=== PATIENT | male | born 1940 | race Caucasian/White ===

== ENCOUNTER → 2018-01-09 09:01 | Outpatient (CLI) | payer MEDICARE, BC, SELFPAY ==
[2018-01-09 09:26] LABS: Add Manual Diff / Slide Review NO; Basophils Percent Auto 0.8 % (0-2); Eosinophils Percent Auto 8.1 % (2-4); Hematocrit 40.7 % (41-53); Lymphocytes Percent Auto 24.6 % (25-40); Mean Corpuscular HGB Conc 34.4 % (30-36); Mean Corpuscular Hemoglobin 29.9 PG (26-34); Monocytes Percent Auto 7.1 % (3-14); Neutrophils Absolute Auto 3000 /uL (3000-5900); Neutrophils Percent Auto 59.4 % (50-75); Platelet Count 198 X10^3/uL (150-400); Red Blood Cell Count 4.68 X10^6/uL (4.5-5.9); Red Cell Distribution Width 13.4 % (11.6-14.8)
[2018-01-09 09:31] LABS: Hemoglobin A1C% w Est Avg Glu 5.7 % (4.0-6.0)
[2018-01-09 09:35] LABS: Alanine Aminotransferase 28 IU/L (21-72); Albumin 4.4 g/dL (3.5-5.0); Albumin Globulin Ratio 1.5 (1.0-2.8); Alkaline Phosphatase 56 U/L (38-126); Aspartate Aminotransferase 29 IU/L (17-59); BUN Creatinine Ratio 17.8 (6-22); Bilirubin Total 0.5 mg/dL (0.2-1.3); Blood Urea Nitrogen 16 mg/dL (9-20); Calcium 9.2 mg/dL (8.4-10.2); Carbon Dioxide 29 mmol/L (22-32); Chloride 104 mmol/L (98-107); Cholesterol 240 mg/dL (140-199); Estimated Glomerular Filt Rate > 60.0 mL/min (>60); Globulin 2.9 g/dL (1.7-4.1); Glucose 105 mg/dL (80-110); HDL Cholesterol 41 mg/dL (40-60); HEMOLYSIS < 15 (0-50); LDL Cholesterol Calculated 180 mg/dL (<100); Potassium 4.5 mmol/L (3.4-5.1); Sodium 145 mmol/L (137-145); Total Protein 7.3 g/dL (6.3-8.2); Triglycerides 93 mg/dL (35-150)
[2018-01-09 09:38] LABS: High Sensitivity CRP - Cardiac 0.5 mg/L (1.0-3.0)
[2018-01-09 09:45] LABS: Erythrocyte Sedimentation Rate 9 MM/HR (0-15)
== END ==
PROVIDERS: Visit Provider Ophthalmology
DX: I63.81 Other cerebral infarction due to occlusion or stenosis of small artery (principal); G45.3 Amaurosis fugax; R73.03 Prediabetes; E78.00 Pure hypercholesterolemia, unspecified
CPT/HCPCS: 36415; 80053; 80061; 83036; 84443; 85025; 85651; 86140

== ENCOUNTER → 2018-01-13 07:47 | Outpatient (CLI) | payer MEDICARE, BC, SELFPAY ==
--- NOTE | 2018-01-13 07:50 | DI.MRI.S_ITS ---
PROCEDURE: MR ANGIO HEAD WO CON INDICATIONS: Other cerebral infarction TECHNIQUE: Noncontrast axial 3-D [id number] MR angiogram, with 3-dimensional maximum intensity projection (MIP) reformats of the internal carotid arteries and posterior circulation then performed. COMPARISON: None. FINDINGS: Image quality: Excellent. Anterior circulation: Intracranial internal carotid arteries demonstrate normal size and intraluminal flow signal. The flow within the paired anterior cerebral arteries is normal and symmetric. The flow within the middle cerebral arteries is normal and symmetric. The anterior communicating artery is seen. No stenoses, occlusions, or aneurysms. Posterior circulation: Visualized portions of the vertebral arteries demonstrate normal caliber, and join to form a normal appearing basilar artery. The flow within the posterior cerebral arteries is normal and symmetric. No stenoses, occlusions, or aneurysms. IMPRESSION: Normal intracranial MR angiogram. Dictated by: Sukumar Perez M.D. on 01/13/2018 at 9:07 Approved by: Sukumar Perez M.D. on 01/13/2018 at 9:08
--- NOTE | 2018-01-13 07:50 | DI.MRI.S_ITS ---
PROCEDURE: MR HEAD/BRAIN WO/W CON INDICATIONS: Other cerebral infarction TECHNIQUE: Noncontrast axial T1 spin echo, axial T2 fast spin echo, sagittal and axial FLAIR, coronal T2 fast spin echo, axial gradient echo, axial diffusion and ADC through the brain. After the administration of contrast, axial and coronal 3D VIBE or T1 spin echo with fat saturation through the brain. COMPARISON: [facility], CT, HEAD WITHOUT CONTRAST, 07/07/2009, 21:52. FINDINGS: Image quality: Excellent. CSF Spaces: Basal cisterns are patent. No extra-axial fluid collections. Ventricles are normal in size and shape. Brain: No midline shift. No intracranial bleeds or masses. No abnormal intracranial enhancement. The brainstem appears normal. Diffusion-weighted images demonstrate no acute ischemic insults. No chronic ischemic insults. Normal intravascular flow voids are present. Skull and face: Calvarial marrow is normal in signal. Orbits appear normal. Sinuses: Sinuses and mastoids appear clear except for a slight degree of ethmoid air cell mucosal thickening and a small mucous retention cyst within the anterior right maxillary sinus.. IMPRESSION: Mild microvascular atherosclerotic change in the deep white matter of each hemisphere, expected for age. No acute or subacute stroke is found. Minimal ethmoid air cell mucosal thickening, note is made of a small mucous retention cyst within the anterior right maxillary sinus. No acute sinusitis is found. Dictated by: Sukumar Perez M.D. on 01/13/2018 at 9:04 Approved by: Sukumar Perez M.D. on 01/13/2018 at 9:07
== END ==
PROVIDERS: PCP Internal Medicine; Visit Provider Ophthalmology
DX: I63.89 Other cerebral infarction (principal); J34.1 Cyst and mucocele of nose and nasal sinus
CPT/HCPCS: 70544; 70553

== ENCOUNTER → 2018-02-05 13:02 | Outpatient (CLI) | payer MEDICARE, BC, SELFPAY ==
--- NOTE | 2018-02-05 | DI.ECHO.S_ITS ---
[facility]---------+ [facility] +---------+ : : [address] : : : : [id number] : : : : Phone: [phone] Echocardiogram Report + + :Name: SHARI GAUTAM Study Date: 02/05/2018 Height: 68 in : :[facility] Weight: 170 lb: : Gender: Male BSA: 1.9 m2 : :: 1940 Age: 77 yrs : :Reason For Study: TIA : : Performed By: Dottie Doan : :Referring: BRUNA THOMAS : + + Interpretation Summary The left ventricle is normal in size. The ejection fraction is estimated to be 60-65%. There is no LV thrombus. The right ventricle is borderline dilated. The right ventricular systolic function is normal. The atrial septum is aneurysmal. There is no Doppler evidence for an interatrial shunt. There is mild tricuspid regurgitation. The right ventricular systolic pressure is estimated to be at least 23 mmHg based on an estimated right atrial pressure of 3 mm Hg. Procedure: A two-dimensional transthoracic echocardiogram with color flow and Doppler was performed. The study quality was technically adequate. There is no prior echocardiogram noted for this patient. The heart rate ranged between 67-75 bpm during the study. The patient was in normal sinus rhythm during the exam. Left Ventricle: The left ventricle is normal in size. Proximal septal thickening is noted. There is no echo evidence for significant left ventricular outflow tract obstruction. There is no thrombus. The ejection fraction is estimated to be 60-65%. There are no focal wall motion abnormalities. Diastolic parameters suggest a relaxation abnormality of the left ventricle, consistent with probable normal filling pressures. Right Ventricle: The right ventricle is borderline dilated. The right ventricular systolic function is normal. Atria: The left atrium is moderately dilated. The right atrium is mildly dilated. The interatrial septum bows toward right atrium consistent with elevated left atrial pressure. The atrial septum is aneurysmal. There is no Doppler evidence for an interatrial shunt. Mitral Valve: There is mild mitral annular calcification. The mitral valve leaflets are slightly calcified. There is trace mitral regurgitation. Aortic Valve: There is mild aortic valve sclerosis. The aortic valve is trileaflet. The aortic valve opens well. There is discrete nodular thickening of the non- coronary cusp. There is no aortic valve stenosis. There is trace aortic regurgitation. Tricuspid Valve: The tricuspid valve is normal. There is mild tricuspid regurgitation. The right ventricular systolic pressure is estimated to be at least 23 mmHg based on an estimated right atrial pressure of 3 mm Hg. Pulmonic Valve: The pulmonic valve leaflets are thin and pliable; valve motion is normal. There is trace pulmonic regurgitation. Great Vessels: The aortic root is normal size. The ascending aorta is at the upper limits of normal in size. The aortic arch is normal in size. The pulmonary artery is normal size. The IVC is of normal diameter and collapses greater than 50% with a sniff. This suggests a low right atrial pressure of 3 mm Hg. Pericardium/ Pleura There is no pericardial effusion. There is no pleural effusion. MMode/2D Measurements & Calculations LVIDd: 4.6 cm LVOT diam: 2.3 cm LVIDs: 2.4 cm Ao root diam: 3.6 cm FS: 47.4 % asc Aorta Diam: 3.5 cm EPSS: 0.48 cm Ao Arch Diam (Prox Trans): 2.9 cm IVSd: 0.76 cm LVPWd: 0.92 cm LV sandoval. diameter/BSA (cm/m^2): 2.4 LV sys. diameter/BSA (cm/m^2): 1.3 LA A2 area: 22.5 cm2 RA long axis: 6.1 cm LA A4 area: 28.3 cm2 RA area: 22.3 cm2 LA length (vol): 6.3 cm RA vol: 69.0 ml LA vol: 86.4 ml RA : 36.2 ml/m2 LA vol index: 45.3 ml/m2 IVC diam: 1.4 cm RVD1 (basal): 3.6 cm TAPSE: 2.9 cm Doppler Measurements & Calculations Ao V2 max: 147.0 cm/sec LVOT Max Juan: 96.4 cm/sec Ao V2 mean: 112.8 cm/sec LV V1 max P.7 mmHg Ao max P.6 mmHg LV V1 VTI: 23.2 cm Ao mean P.4 mmHg JOSE JUAN(I,D): 3.1 cm2 Ao V2 VTI: 30.6 cm JOSE JUAN(V,D): 2.7 cm2 sev ratio: 0.76 JOSE JUAN indexed to BSA (cm^2/m^2): 1.6 MV E max juan: 60.7 cm/sec TR max juan: 220.5 cm/sec MV A max juan: 76.7 cm/sec TR max P.4 mmHg MV E/A: 0.79 Med Peak E' Juan: 6.0 cm/sec E/E' med: 10.1 Lat Peak E' Juan: 6.8 cm/sec E/E' lat: 8.9 E/e' average: 9.5 MV dec time: 0.22 sec Reading Physician:ALLISON
--- NOTE | 2018-02-05 | DI.US.S_ITS ---
PROCEDURE: US CAROTID DOPPLER BI INDICATIONS: TRANSIENT CEREBRAL TECHNIQUE: Color and pulse Doppler interrogation was performed of both carotid systems, with image documentation and velocity measurements. COMPARISON: None. FINDINGS: Stenosis calculations are based on SRU (Society of Radiologists in Ultrasound) criteria. Right side: Brachial blood pressure: 138/68 mm Hg. Common carotid artery peak systolic velocity: 93 cm/sec. Internal carotid artery peak systolic velocity: 543 cm/sec. Internal carotid artery end diastolic velocity: 219 cm/sec. External carotid artery peak systolic velocity: 175 cm/sec. ICA/CCA peak systolic ratio: 5.9. Camilo scale imaging description: Prominent calcific and soft plaque Percent internal carotid artery stenosis: 70%-to-near occlusion within the proximal right internal carotid artery. Vertebral artery: Flow direction is antegrade. Left side: Brachial blood pressure: 133/82 mm Hg. Common carotid artery peak systolic velocity: 189 cm/sec. Internal carotid artery peak systolic velocity: 212 cm/sec. Internal carotid artery end diastolic velocity: 71 cm/sec. External carotid artery peak systolic velocity: 141 cm/sec. ICA/CCA peak systolic ratio: 1.1. Camilo scale imaging description: Mild soft plaque Percent internal carotid artery stenosis: Less than 50% stenosis. Vertebral artery: Flow direction is antegrade. IMPRESSION: The degree of stenosis is significant on the right, with markedly elevated flow velocity and IC/CCA systolic ratio. The degree of stenosis is 70% or occlusion. This information was called to and discussed with the ordering health care provider at completion of the examination. Dictated by: Sukumar Perez M.D. on 02/05/2018 at 15:52 Approved by: Sukumar Perez M.D. on 02/05/2018 at 16:03
== END ==
PROVIDERS: Family Provider Internal Medicine; PCP Internal Medicine; Visit Provider Internal Medicine
DX: I65.23 Occlusion and stenosis of bilateral carotid arteries (principal)
CPT/HCPCS: 93306; 93880

== ENCOUNTER 2018-02-12 06:26 | Emergency (ER) | payer MEDICARE, BC, SELFPAY ==
[2018-02-12] VITALS (9 sets, daily range): BP systolic 96–155; BP diastolic 53–95; PULSE 72–146; RESP 14–18; TEMP 37; O2SAT 97–99; BMI 23.6
--- NOTE | 2018-02-12 06:28 | DI.RAD.S_ITS ---
PROCEDURE: XR CHEST 1V INDICATIONS: chest pain TECHNIQUE: One view of the chest was acquired. COMPARISON: [facility], , CHEST 2 VIEW, 07/09/2009, 11:19. FINDINGS: Surgical changes and devices: None. Lungs and pleura: No pleural effusions or pneumothorax. Lungs are clear. Mediastinum: Mediastinal contours appear normal. Heart size is normal. Bones and chest wall: No suspicious bony lesions. Overlying soft tissues appear unremarkable. IMPRESSION: No acute cardiopulmonary disease process. Dictated by: Leslye Mckinney MD, PhD on 02/12/2018 at 8:21 Approved by: Leslye Mckinney MD, PhD on 02/12/2018 at 8:21
--- NOTE | 2018-02-12 06:41 | ED.CHESTPAIN ---
HPI - Chest Pain <DO Tamara Paz Last Filed: 02/12/18 20:44> General Chief Complaint: Chest Pain Stated Complaint: chest pain Time Seen by Provider: 02/12/18 06:27 Source: patient Mode of arrival: ambulatory Limitations: no limitations History of Present Illness HPI narrative: 77-year-old male status post right-sided carotid endarterectomy 2 days ago. Was discharged yesterday. States that he went to bed last night feeling as expected after having surgery. Woke up this morning to go use the restroom when he felt like his heart was flip-flopping was having chest discomfort at the time. States that his symptoms have improved somewhat since the onset. States he is somewhat having shortness of breath. Has not tried anything for prior to arrival Related Data Home Medications Medication Instructions Recorded Confirmed atorvastatin 20 mg PO DAILY 02/12/18 02/12/18 clopidogrel 75 mg PO DAILY 02/12/18 02/12/18 oxycodone 5 mg PO Q4-6H PRN 02/12/18 02/12/18 Previous Rx's Medication Instructions Recorded apixaban [Eliquis] See Label Instructions .ROUTE 02/12/18 .COMPLEX #60 tab Allergies Allergy/AdvReac Type Severity Reaction Status Date / Time No Known Drug Allergies Allergy Verified 02/12/18 07:01 Review of Systems <DO Tamara Paz Last Filed: 02/12/18 20:44> Constitutional Denies fever(s) and Denies headache(s) ENT Ears, Nose, Mouth, and Throat: Denies vertigo, Denies headache(s), Reports neck pain ( right-sided) and Reports sore throat Cardiovascular Reports chest pain, Reports rapid heart rate, Reports palpitations and Denies dyspnea Respiratory Denies cough and Denies dyspnea Gastrointestinal Gastrointestinal: Denies abdominal pain, Denies nausea and Denies vomiting Musculoskeletal Denies myalgias, Denies arthralgias and Reports neck pain ( right-sided) Integumentary/Breasts Comments: surgical incision right-sided neck Neurologic Denies vertigo and Denies headache(s) Endocrine Reports palpitations Hematologic/Lymphatic Comments: not on anticoagulation Exam <DO Tamara Paz Last Filed: 02/12/18 20:44> Initial Vital Signs Initial Vital Signs: Vital Signs Temperature 98.6 F 02/12/18 06:34 Pulse Rate 146 H 02/12/18 06:34 Respiratory Rate 15 02/12/18 06:34 Blood Pressure 155/95 H 02/12/18 06:34 Pulse Oximetry 98 02/12/18 06:34 Const General: cooperative, well developed, well groomed and No acute distress Orientation: alert, awake and oriented x3 HENMT Head: normal to inspection and normocephalic Resp Effort & Inspection: normal respiratory effort Auscultation: clear to auscultation bilaterally Cardio Rate: tachycardic Rhythm: abnormal rhythm irregularly irregular Pulses: radial pulses present GI Inspection: non-distended Palpation: soft Skin Lesions: no lesions Other: surgical incision right-sided neck covered with surgical dressing. No surrounding erythema Neuro General: alert, awake and oriented x3 Extrem General: normal to inspection, capillary refill normal and No edema Psych Appearance: grossly normal and well kempt Speech and Movement: speech and movement normal Mood: congruent mood Attitude: cooperative <Devan Moody DO - Last Filed: 02/12/18 14:25> Initial Vital Signs Initial Vital Signs: Vital Signs Temperature 98.6 F 02/12/18 06:34 Pulse Rate 146 H 02/12/18 06:34 Respiratory Rate 15 02/12/18 06:34 Blood Pressure 155/95 H 02/12/18 06:34 Pulse Oximetry 98 02/12/18 06:34 <Devan Moody DO - Last Filed: 02/12/18 14:25> CHADS-VASc Congestive heart failure: no Hypertension: no Age 75 years or older: yes Diabetes mellitus: no Stroke, TIA, or TE: yes Vascular disease: yes Age 65 to 74 years: no Sex category (female): Male CHADS-VASc Score: 5 Course <Kam Loomis DO - Last Filed: 02/12/18 20:44> Orders Ordered: Discontinued Medications Apixaban (Eliquis) 10 mg PO NOW ONE Stop: 02/12/18 09:56 Last Admin: 02/12/18 10:04 Dose: 10 mg Diltiazem HCl (Cardizem) 20 mg IV NOW ONE Stop: 02/12/18 06:45 Last Admin: 02/12/18 06:50 Dose: 20 mg Sodium Chloride (Normal Saline 0.9%) 1,000 mls @ 1,000 mls/hr IV BOLUS ONE Stop: 02/12/18 07:43 Last Infusion: 02/12/18 08:33 Dose: 0 mls/hr Admin: 02/12/18 06:52 Dose: 1,000 mls/hr Diltiazem HCl 125 mg/ Dextrose 125 mls @ 5 mls/hr IV TITRATE NGOZI; Protocol Last Titration: 02/12/18 10:47 Dose: 0 mg/hr, 0 mls/hr Titration: 02/12/18 09:23 Dose: 0 mg/hr, 0 mls/hr Admin: 02/12/18 07:29 Dose: 5 mg/hr, 5 mls/hr Vital Signs - 8 hr 02/12/18 06:34 02/12/18 06:50 02/12/18 07:03 Temperature 98.6 F Pulse Rate 146 H 141 H 92 H Respiratory Rate 15 15 Blood Pressure 155/95 H 155/95 H Blood Pressure [Right Arm] 107/58 L Pulse Oximetry 98 97 02/12/18 07:29 02/12/18 08:02 02/12/18 08:45 Temperature Pulse Rate 92 H 85 98 H Respiratory Rate 18 18 Blood Pressure 118/61 Blood Pressure [Right Arm] 107/58 L 96/55 L Pulse Oximetry 97 99 02/12/18 09:15 02/12/18 10:00 02/12/18 10:29 Temperature Pulse Rate 72 82 77 Respiratory Rate 18 16 14 Blood Pressure Blood Pressure [Right Arm] 118/55 L 102/59 L 103/53 L Pulse Oximetry 97 99 99 <Devan Moody DO - Last Filed: 02/12/18 14:25> Orders Ordered: Discontinued Medications Apixaban (Eliquis) 10 mg PO NOW ONE Stop: 02/12/18 09:56 Last Admin: 02/12/18 10:04 Dose: 10 mg Diltiazem HCl (Cardizem) 20 mg IV NOW ONE Stop: 02/12/18 06:45 Last Admin: 02/12/18 06:50 Dose: 20 mg Sodium Chloride (Normal Saline 0.9%) 1,000 mls @ 1,000 mls/hr IV BOLUS ONE Stop: 02/12/18 07:43 Last Infusion: 02/12/18 08:33 Dose: 0 mls/hr Admin: 02/12/18 06:52 Dose: 1,000 mls/hr Diltiazem HCl 125 mg/ Dextrose 125 mls @ 5 mls/hr IV TITRATE NGOZI; Protocol Last Titration: 02/12/18 10:47 Dose: 0 mg/hr, 0 mls/hr Titration: 02/12/18 09:23 Dose: 0 mg/hr, 0 mls/hr Admin: 02/12/18 07:29 Dose: 5 mg/hr, 5 mls/hr Reevaluation(s) Reevaluation #1: Received sign-out from Dr. Loomis, I have performed an independent interview and exam and have no profound additions. Patient is resting comfortably on a Cardizem drip with heart rate currently 100. He denies active chest pain or shortness of breath. CT angiogram has just returned and is negative for pulmonary embolism. Call placed to vascular at [facility] to discuss options Reevaluation #2: While preparing to consent the patient for procedural sedation and cardioversion the patient spontaneously converted into a sinus rhythm where he remained for nearly an hour in the aftermath. Consultations Consultation #1: call to Vascular at [facility] whom suggests that cardioversion and procedural sedation are safe, as is anticoagulation Call to Cardio at [facility] whom is happy to recommend the above Call to PCP whom recommends [facility] Cardio Time: 08:22 Vital Signs - 8 hr 02/12/18 06:34 02/12/18 06:50 02/12/18 07:03 Temperature 98.6 F Pulse Rate 146 H 141 H 92 H Respiratory Rate 15 15 Blood Pressure 155/95 H 155/95 H Blood Pressure [Right Arm] 107/58 L Pulse Oximetry 98 97 02/12/18 07:29 02/12/18 08:02 02/12/18 08:45 Temperature Pulse Rate 92 H 85 98 H Respiratory Rate 18 18 Blood Pressure 118/61 Blood Pressure [Right Arm] 107/58 L 96/55 L Pulse Oximetry 97 99 02/12/18 09:15 02/12/18 10:00 02/12/18 10:29 Temperature Pulse Rate 72 82 77 Respiratory Rate 18 16 14 Blood Pressure Blood Pressure [Right Arm] 118/55 L 102/59 L 103/53 L Pulse Oximetry 97 99 99 MDM - Chest Pain <Kam Loomis DO - Last Filed: 02/12/18 20:44> Lab Data Result diagrams: 02/12/18 06:30 02/12/18 06:30 Lab Results 02/12/18 02/12/18 02/12/18 Range/Units 06:30 06:30 06:30 WBC 9.2 (4.5-11.0) X10^3/uL RBC 4.48 L (4.5-5.9) X10^6/uL Hgb 13.3 L (13.5-17.5) g/dL Hct 39.6 L (41-53) % MCV 88.5 (80-100) fL MCH 29.7 (26-34) PG MCHC 33.5 (30-36) % RDW 13.6 (11.6-14.8) % Plt Count 189 (150-400) X10^3/uL Neut % (Auto) 66.6 (50-75) % Lymph % (Auto) 18.7 L (25-40) % Charlotte % (Auto) 10.3 (3-14) % Eos % (Auto) 4.0 (2-4) % Baso % (Auto) 0.4 (0-2) % Neut # (Auto) 6100 H (6039-0400) /uL PT 11.9 (10.1-12.7) SECONDS INR 1.0 (0.9-1.3) APTT 29 (26.4-36.2) SECONDS Sodium 142 (137-145) mmol/L Potassium 3.8 (3.4-5.1) mmol/L Chloride 103 (98-107) mmol/L Carbon Dioxide 28 (22-32) mmol/L BUN 9 (9-20) mg/dL Creatinine 0.90 (0.66-1.25) mg/dL Estimated GFR > 60.0 (>60) mL/min BUN/Creatinine Ratio 10.0 (6-22) Glucose 120 H (80-110) mg/dL Calcium 9.2 (8.4-10.2) mg/dL Troponin I 0.013 (0.01-0.034) ng/mL B-Natriuretic Peptide (<100) 02/12/18 Range/Units 06:30 WBC (4.5-11.0) X10^3/uL RBC (4.5-5.9) X10^6/uL Hgb (13.5-17.5) g/dL Hct (41-53) % MCV (80-100) fL MCH (26-34) PG MCHC (30-36) % RDW (11.6-14.8) % Plt Count (150-400) X10^3/uL Neut % (Auto) (50-75) % Lymph % (Auto) (25-40) % Charlotte % (Auto) (3-14) % Eos % (Auto) (2-4) % Baso % (Auto) (0-2) % Neut # (Auto) (4201-9617) /uL PT (10.1-12.7) SECONDS INR (0.9-1.3) APTT (26.4-36.2) SECONDS Sodium (137-145) mmol/L Potassium (3.4-5.1) mmol/L Chloride (98-107) mmol/L Carbon Dioxide (22-32) mmol/L BUN (9-20) mg/dL Creatinine (0.66-1.25) mg/dL Estimated GFR (>60) mL/min BUN/Creatinine Ratio (6-22) Glucose (80-110) mg/dL Calcium (8.4-10.2) mg/dL Troponin I (0.01-0.034) ng/mL B-Natriuretic Peptide 568.0 H (<100) Imaging Data Chest x-ray: Attestation: I personally reviewed and interpreted this imaging study as follows: My impression: normal size heart No focal consolidation no pneumothorax ECG Data Attestation: I personally reviewed and interpreted this ECG as follows: Prior ECG tracings: not available for review Interpretation: atrial fibrillation ventricular rate of 145 Normal axis Normal QRS Normal QTC ST depressions V4 V5 MDM Narrative Medical decision making narrative: patient is stable. No history of atrial fibrillation. Started sometime overnight. Noticed it this morning when he woke up. Went to bed last night without any symptoms. He is not currently on any anticoagulation. Did recently have a right-sided carotid endarterectomy at [place]. Given his tachycardia and his respiratory issues and his recent surgery there is some concern for pulmonary embolism. CT scan of his chest was ordered. His symptoms also could very well be secondary to his rapid heart rate. Patient was given Cardizem bolus and started on a Cardizem drip. Care turned over to day provider at change of shift to follow up on CT PE protocol and further evaluation and disposition. <Devan Moody, DO - Last Filed: 02/12/18 14:25> Lab Data Lab Results 02/12/18 02/12/18 02/12/18 Range/Units 06:30 06:30 06:30 WBC 9.2 (4.5-11.0) X10^3/uL RBC 4.48 L (4.5-5.9) X10^6/uL Hgb 13.3 L (13.5-17.5) g/dL Hct 39.6 L (41-53) % MCV 88.5 (80-100) fL MCH 29.7 (26-34) PG MCHC 33.5 (30-36) % RDW 13.6 (11.6-14.8) % Plt Count 189 (150-400) X10^3/uL Neut % (Auto) 66.6 (50-75) % Lymph % (Auto) 18.7 L (25-40) % Charlotte % (Auto) 10.3 (3-14) % Eos % (Auto) 4.0 (2-4) % Baso % (Auto) 0.4 (0-2) % Neut # (Auto) 6100 H (2467-9851) /uL PT 11.9 (10.1-12.7) SECONDS INR 1.0 (0.9-1.3) APTT 29 (26.4-36.2) SECONDS Sodium 142 (137-145) mmol/L Potassium 3.8 (3.4-5.1) mmol/L Chloride 103 (98-107) mmol/L Carbon Dioxide 28 (22-32) mmol/L BUN 9 (9-20) mg/dL Creatinine 0.90 (0.66-1.25) mg/dL Estimated GFR > 60.0 (>60) mL/min BUN/Creatinine Ratio 10.0 (6-22) Glucose 120 H (80-110) mg/dL Calcium 9.2 (8.4-10.2) mg/dL Troponin I 0.013 (0.01-0.034) ng/mL B-Natriuretic Peptide (<100) 02/12/18 Range/Units 06:30 WBC (4.5-11.0) X10^3/uL RBC (4.5-5.9) X10^6/uL Hgb (13.5-17.5) g/dL Hct (41-53) % MCV (80-100) fL MCH (26-34) PG MCHC (30-36) % RDW (11.6-14.8) % Plt Count (150-400) X10^3/uL Neut % (Auto) (50-75) % Lymph % (Auto) (25-40) % Charlotte % (Auto) (3-14) % Eos % (Auto) (2-4) % Baso % (Auto) (0-2) % Neut # (Auto) (0260-4773) /uL PT (10.1-12.7) SECONDS INR (0.9-1.3) APTT (26.4-36.2) SECONDS Sodium (137-145) mmol/L Potassium (3.4-5.1) mmol/L Chloride (98-107) mmol/L Carbon Dioxide (22-32) mmol/L BUN (9-20) mg/dL Creatinine (0.66-1.25) mg/dL Estimated GFR (>60) mL/min BUN/Creatinine Ratio (6-22) Glucose (80-110) mg/dL Calcium (8.4-10.2) mg/dL Troponin I (0.01-0.034) ng/mL B-Natriuretic Peptide 568.0 H (<100) Discharge Plan Departure Patient Disposition: Home Clinical Impression: Atrial fib/flutter, transient Discharge Date/Time: 02/12/18 10:48 Interventions: ED Discharge Assessment Last Done: 02/12/18 10:48 Instructions: DI for Atrial Fibrillation Activity Restrictions/Additional Instructions: *You have been diagnosed with [ new onset atrial fibrillation ] *What to do: *Take medications as directed. Your prescription has been electronically transmitted to [facility] in [place] at your request. Please take your next dose tonight. *Follow up with your primary care provider in 2-3 days, call for an appointment. Let them know you were seen in the Emergency Department and that we ask that you be seen in follow up. He will need to see Cardiology in follow-up for your newly discovered atrial fibrillation *Return to ER if you should have any new, worsening or concerning symptoms, such as [return of palpitations, rapid heart rate, or other bothersome symptoms ] Prescriptions: New apixaban [Eliquis] 5 mg tablet See Label Instructions .ROUTE .COMPLEX Qty: 60 RF: 0 No Action atorvastatin 20 mg tablet 20 mg PO DAILY RF: 0 clopidogrel 75 mg tablet 75 mg PO DAILY RF: 0 oxycodone 5 mg tablet 5 mg PO Q4-6H PRN (Reason: pain) RF: 0 Referrals: Usman White MD [Physician] - Kiley Jameson MD [Primary Care Provider] -
[2018-02-12 06:44] LABS: Add Manual Diff / Slide Review NO; Basophils Percent Auto 0.4 % (0-2); Hematocrit 39.6 % (41-53); Hemoglobin 13.3 g/dL (13.5-17.5); Lymphocytes Percent Auto 18.7 % (25-40); Mean Corpuscular HGB Conc 33.5 % (30-36); Mean Corpuscular Hemoglobin 29.7 PG (26-34); Mean Corpuscular Volume 88.5 fL (80-100); Monocytes Percent Auto 10.3 % (3-14); Neutrophils Absolute Auto 6100 /uL (3000-5900); Neutrophils Percent Auto 66.6 % (50-75); Platelet Count 189 X10^3/uL (150-400); Red Blood Cell Count 4.48 X10^6/uL (4.5-5.9); Red Cell Distribution Width 13.6 % (11.6-14.8); White Blood Cell Count 9.2 X10^3/uL (4.5-11.0)
--- NOTE | 2018-02-12 06:44 | ED_ITS ---
HPI - Chest Pain <DO Tamara Paz Last Filed: 02/12/18 20:44> General Chief Complaint: Chest Pain Stated Complaint: chest pain Time Seen by Provider: 02/12/18 06:27 Source: patient Mode of arrival: ambulatory Limitations: no limitations History of Present Illness HPI narrative: 77-year-old male status post right-sided carotid endarterectomy 2 days ago. Was discharged yesterday. States that he went to bed last night feeling as expected after having surgery. Woke up this morning to go use the restroom when he felt like his heart was flip-flopping was having chest discomfort at the time. States that his symptoms have improved somewhat since the onset. States he is somewhat having shortness of breath. Has not tried anything for prior to arrival Related Data Home Medications Medication Instructions Recorded Confirmed atorvastatin 20 mg PO DAILY 02/12/18 02/12/18 clopidogrel 75 mg PO DAILY 02/12/18 02/12/18 oxycodone 5 mg PO Q4-6H PRN 02/12/18 02/12/18 Previous Rx's Medication Instructions Recorded apixaban [Eliquis] See Label Instructions .ROUTE 02/12/18 .COMPLEX #60 tab Allergies Allergy/AdvReac Type Severity Reaction Status Date / Time No Known Drug Allergies Allergy Verified 02/12/18 07:01 Review of Systems <DO Tamara Paz Last Filed: 02/12/18 20:44> Constitutional Denies fever(s) and Denies headache(s) ENT Ears, Nose, Mouth, and Throat: Denies vertigo, Denies headache(s), Reports neck pain ( right-sided) and Reports sore throat Cardiovascular Reports chest pain, Reports rapid heart rate, Reports palpitations and Denies dyspnea Respiratory Denies cough and Denies dyspnea Gastrointestinal Gastrointestinal: Denies abdominal pain, Denies nausea and Denies vomiting Musculoskeletal Denies myalgias, Denies arthralgias and Reports neck pain ( right-sided) Integumentary/Breasts Comments: surgical incision right-sided neck Neurologic Denies vertigo and Denies headache(s) Endocrine Reports palpitations Hematologic/Lymphatic Comments: not on anticoagulation Exam <DO Tamara Paz Last Filed: 02/12/18 20:44> Initial Vital Signs Initial Vital Signs: Vital Signs Temperature 98.6 F 02/12/18 06:34 Pulse Rate 146 H 02/12/18 06:34 Respiratory Rate 15 02/12/18 06:34 Blood Pressure 155/95 H 02/12/18 06:34 Pulse Oximetry 98 02/12/18 06:34 Const General: cooperative, well developed, well groomed and No acute distress Orientation: alert, awake and oriented x3 HENMT Head: normal to inspection and normocephalic Resp Effort & Inspection: normal respiratory effort Auscultation: clear to auscultation bilaterally Cardio Rate: tachycardic Rhythm: abnormal rhythm irregularly irregular Pulses: radial pulses present GI Inspection: non-distended Palpation: soft Skin Lesions: no lesions Other: surgical incision right-sided neck covered with surgical dressing. No surrounding erythema Neuro General: alert, awake and oriented x3 Extrem General: normal to inspection, capillary refill normal and No edema Psych Appearance: grossly normal and well kempt Speech and Movement: speech and movement normal Mood: congruent mood Attitude: cooperative <Devan Moody DO - Last Filed: 02/12/18 14:25> Initial Vital Signs Initial Vital Signs: Vital Signs Temperature 98.6 F 02/12/18 06:34 Pulse Rate 146 H 02/12/18 06:34 Respiratory Rate 15 02/12/18 06:34 Blood Pressure 155/95 H 02/12/18 06:34 Pulse Oximetry 98 02/12/18 06:34 <Devan Moody DO - Last Filed: 02/12/18 14:25> CHADS-VASc Congestive heart failure: no Hypertension: no Age 75 years or older: yes Diabetes mellitus: no Stroke, TIA, or TE: yes Vascular disease: yes Age 65 to 74 years: no Sex category (female): Male CHADS-VASc Score: 5 Course <Kam Loomis DO - Last Filed: 02/12/18 20:44> Orders Ordered: Discontinued Medications Apixaban (Eliquis) 10 mg PO NOW ONE Stop: 02/12/18 09:56 Last Admin: 02/12/18 10:04 Dose: 10 mg Diltiazem HCl (Cardizem) 20 mg IV NOW ONE Stop: 02/12/18 06:45 Last Admin: 02/12/18 06:50 Dose: 20 mg Sodium Chloride (Normal Saline 0.9%) 1,000 mls @ 1,000 mls/hr IV BOLUS ONE Stop: 02/12/18 07:43 Last Infusion: 02/12/18 08:33 Dose: 0 mls/hr Admin: 02/12/18 06:52 Dose: 1,000 mls/hr Diltiazem HCl 125 mg/ Dextrose 125 mls @ 5 mls/hr IV TITRATE NGOZI; Protocol Last Titration: 02/12/18 10:47 Dose: 0 mg/hr, 0 mls/hr Titration: 02/12/18 09:23 Dose: 0 mg/hr, 0 mls/hr Admin: 02/12/18 07:29 Dose: 5 mg/hr, 5 mls/hr Vital Signs - 8 hr 02/12/18 06:34 02/12/18 06:50 02/12/18 07:03 Temperature 98.6 F Pulse Rate 146 H 141 H 92 H Respiratory Rate 15 15 Blood Pressure 155/95 H 155/95 H Blood Pressure [Right Arm] 107/58 L Pulse Oximetry 98 97 02/12/18 07:29 02/12/18 08:02 02/12/18 08:45 Temperature Pulse Rate 92 H 85 98 H Respiratory Rate 18 18 Blood Pressure 118/61 Blood Pressure [Right Arm] 107/58 L 96/55 L Pulse Oximetry 97 99 02/12/18 09:15 02/12/18 10:00 02/12/18 10:29 Temperature Pulse Rate 72 82 77 Respiratory Rate 18 16 14 Blood Pressure Blood Pressure [Right Arm] 118/55 L 102/59 L 103/53 L Pulse Oximetry 97 99 99 <Devan Moody DO - Last Filed: 02/12/18 14:25> Orders Ordered: Discontinued Medications Apixaban (Eliquis) 10 mg PO NOW ONE Stop: 02/12/18 09:56 Last Admin: 02/12/18 10:04 Dose: 10 mg Diltiazem HCl (Cardizem) 20 mg IV NOW ONE Stop: 02/12/18 06:45 Last Admin: 02/12/18 06:50 Dose: 20 mg Sodium Chloride (Normal Saline 0.9%) 1,000 mls @ 1,000 mls/hr IV BOLUS ONE Stop: 02/12/18 07:43 Last Infusion: 02/12/18 08:33 Dose: 0 mls/hr Admin: 02/12/18 06:52 Dose: 1,000 mls/hr Diltiazem HCl 125 mg/ Dextrose 125 mls @ 5 mls/hr IV TITRATE NGOZI; Protocol Last Titration: 02/12/18 10:47 Dose: 0 mg/hr, 0 mls/hr Titration: 02/12/18 09:23 Dose: 0 mg/hr, 0 mls/hr Admin: 02/12/18 07:29 Dose: 5 mg/hr, 5 mls/hr Reevaluation(s) Reevaluation #1: Received sign-out from Dr. Loomis, I have performed an independent interview and exam and have no profound additions. Patient is resting comfortably on a Cardizem drip with heart rate currently 100. He denies active chest pain or shortness of breath. CT angiogram has just returned and is negative for pulmonary embolism. Call placed to vascular at [facility] to discuss options Reevaluation #2: While preparing to consent the patient for procedural sedation and cardioversion the patient spontaneously converted into a sinus rhythm where he remained for nearly an hour in the aftermath. Consultations Consultation #1: call to Vascular at [facility] whom suggests that cardioversion and procedural sedation are safe, as is anticoagulation Call to Cardio at [facility] whom is happy to recommend the above Call to PCP whom recommends [facility] Cardio Time: 08:22 Vital Signs - 8 hr 02/12/18 06:34 02/12/18 06:50 02/12/18 07:03 Temperature 98.6 F Pulse Rate 146 H 141 H 92 H Respiratory Rate 15 15 Blood Pressure 155/95 H 155/95 H Blood Pressure [Right Arm] 107/58 L Pulse Oximetry 98 97 02/12/18 07:29 02/12/18 08:02 02/12/18 08:45 Temperature Pulse Rate 92 H 85 98 H Respiratory Rate 18 18 Blood Pressure 118/61 Blood Pressure [Right Arm] 107/58 L 96/55 L Pulse Oximetry 97 99 02/12/18 09:15 02/12/18 10:00 02/12/18 10:29 Temperature Pulse Rate 72 82 77 Respiratory Rate 18 16 14 Blood Pressure Blood Pressure [Right Arm] 118/55 L 102/59 L 103/53 L Pulse Oximetry 97 99 99 MDM - Chest Pain <Kam Loomis DO - Last Filed: 02/12/18 20:44> Lab Data Result diagrams: 02/12/18 06:30 02/12/18 06:30 Lab Results 02/12/18 02/12/18 02/12/18 Range/Units 06:30 06:30 06:30 WBC 9.2 (4.5-11.0) X10^3/uL RBC 4.48 L (4.5-5.9) X10^6/uL Hgb 13.3 L (13.5-17.5) g/dL Hct 39.6 L (41-53) % MCV 88.5 (80-100) fL MCH 29.7 (26-34) PG MCHC 33.5 (30-36) % RDW 13.6 (11.6-14.8) % Plt Count 189 (150-400) X10^3/uL Neut % (Auto) 66.6 (50-75) % Lymph % (Auto) 18.7 L (25-40) % Louisa % (Auto) 10.3 (3-14) % Eos % (Auto) 4.0 (2-4) % Baso % (Auto) 0.4 (0-2) % Neut # (Auto) 6100 H (4309-8245) /uL PT 11.9 (10.1-12.7) SECONDS INR 1.0 (0.9-1.3) APTT 29 (26.4-36.2) SECONDS Sodium 142 (137-145) mmol/L Potassium 3.8 (3.4-5.1) mmol/L Chloride 103 (98-107) mmol/L Carbon Dioxide 28 (22-32) mmol/L BUN 9 (9-20) mg/dL Creatinine 0.90 (0.66-1.25) mg/dL Estimated GFR > 60.0 (>60) mL/min BUN/Creatinine Ratio 10.0 (6-22) Glucose 120 H (80-110) mg/dL Calcium 9.2 (8.4-10.2) mg/dL Troponin I 0.013 (0.01-0.034) ng/mL B-Natriuretic Peptide (<100) 02/12/18 Range/Units 06:30 WBC (4.5-11.0) X10^3/uL RBC (4.5-5.9) X10^6/uL Hgb (13.5-17.5) g/dL Hct (41-53) % MCV (80-100) fL MCH (26-34) PG MCHC (30-36) % RDW (11.6-14.8) % Plt Count (150-400) X10^3/uL Neut % (Auto) (50-75) % Lymph % (Auto) (25-40) % Louisa % (Auto) (3-14) % Eos % (Auto) (2-4) % Baso % (Auto) (0-2) % Neut # (Auto) (0898-2335) /uL PT (10.1-12.7) SECONDS INR (0.9-1.3) APTT (26.4-36.2) SECONDS Sodium (137-145) mmol/L Potassium (3.4-5.1) mmol/L Chloride (98-107) mmol/L Carbon Dioxide (22-32) mmol/L BUN (9-20) mg/dL Creatinine (0.66-1.25) mg/dL Estimated GFR (>60) mL/min BUN/Creatinine Ratio (6-22) Glucose (80-110) mg/dL Calcium (8.4-10.2) mg/dL Troponin I (0.01-0.034) ng/mL B-Natriuretic Peptide 568.0 H (<100) Imaging Data Chest x-ray: Attestation: I personally reviewed and interpreted this imaging study as follows: My impression: normal size heart No focal consolidation no pneumothorax ECG Data Attestation: I personally reviewed and interpreted this ECG as follows: Prior ECG tracings: not available for review Interpretation: atrial fibrillation ventricular rate of 145 Normal axis Normal QRS Normal QTC ST depressions V4 V5 MDM Narrative Medical decision making narrative: patient is stable. No history of atrial fibrillation. Started sometime overnight. Noticed it this morning when he woke up. Went to bed last night without any symptoms. He is not currently on any anticoagulation. Did recently have a right-sided carotid endarterectomy at [place]. Given his tachycardia and his respiratory issues and his recent surgery there is some concern for pulmonary embolism. CT scan of his chest was ordered. His symptoms also could very well be secondary to his rapid heart rate. Patient was given Cardizem bolus and started on a Cardizem drip. Care turned over to day provider at change of shift to follow up on CT PE protocol and further evaluation and disposition. <Devan Moody, DO - Last Filed: 02/12/18 14:25> Lab Data Lab Results 02/12/18 02/12/18 02/12/18 Range/Units 06:30 06:30 06:30 WBC 9.2 (4.5-11.0) X10^3/uL RBC 4.48 L (4.5-5.9) X10^6/uL Hgb 13.3 L (13.5-17.5) g/dL Hct 39.6 L (41-53) % MCV 88.5 (80-100) fL MCH 29.7 (26-34) PG MCHC 33.5 (30-36) % RDW 13.6 (11.6-14.8) % Plt Count 189 (150-400) X10^3/uL Neut % (Auto) 66.6 (50-75) % Lymph % (Auto) 18.7 L (25-40) % Louisa % (Auto) 10.3 (3-14) % Eos % (Auto) 4.0 (2-4) % Baso % (Auto) 0.4 (0-2) % Neut # (Auto) 6100 H (7397-6036) /uL PT 11.9 (10.1-12.7) SECONDS INR 1.0 (0.9-1.3) APTT 29 (26.4-36.2) SECONDS Sodium 142 (137-145) mmol/L Potassium 3.8 (3.4-5.1) mmol/L Chloride 103 (98-107) mmol/L Carbon Dioxide 28 (22-32) mmol/L BUN 9 (9-20) mg/dL Creatinine 0.90 (0.66-1.25) mg/dL Estimated GFR > 60.0 (>60) mL/min BUN/Creatinine Ratio 10.0 (6-22) Glucose 120 H (80-110) mg/dL Calcium 9.2 (8.4-10.2) mg/dL Troponin I 0.013 (0.01-0.034) ng/mL B-Natriuretic Peptide (<100) 02/12/18 Range/Units 06:30 WBC (4.5-11.0) X10^3/uL RBC (4.5-5.9) X10^6/uL Hgb (13.5-17.5) g/dL Hct (41-53) % MCV (80-100) fL MCH (26-34) PG MCHC (30-36) % RDW (11.6-14.8) % Plt Count (150-400) X10^3/uL Neut % (Auto) (50-75) % Lymph % (Auto) (25-40) % Louisa % (Auto) (3-14) % Eos % (Auto) (2-4) % Baso % (Auto) (0-2) % Neut # (Auto) (5645-3109) /uL PT (10.1-12.7) SECONDS INR (0.9-1.3) APTT (26.4-36.2) SECONDS Sodium (137-145) mmol/L Potassium (3.4-5.1) mmol/L Chloride (98-107) mmol/L Carbon Dioxide (22-32) mmol/L BUN (9-20) mg/dL Creatinine (0.66-1.25) mg/dL Estimated GFR (>60) mL/min BUN/Creatinine Ratio (6-22) Glucose (80-110) mg/dL Calcium (8.4-10.2) mg/dL Troponin I (0.01-0.034) ng/mL B-Natriuretic Peptide 568.0 H (<100) Discharge Plan Departure Patient Disposition: Home Clinical Impression: Atrial fib/flutter, transient Discharge Date/Time: 02/12/18 10:48 Interventions: ED Discharge Assessment Last Done: 02/12/18 10:48 Instructions: DI for Atrial Fibrillation Activity Restrictions/Additional Instructions: *You have been diagnosed with [ new onset atrial fibrillation ] *What to do: *Take medications as directed. Your prescription has been electronically transmitted to [facility] in [place] at your request. Please take your next dose tonight. *Follow up with your primary care provider in 2-3 days, call for an appointment. Let them know you were seen in the Emergency Department and that we ask that you be seen in follow up. He will need to see Cardiology in follow- up for your newly discovered atrial fibrillation *Return to ER if you should have any new, worsening or concerning symptoms , such as [return of palpitations, rapid heart rate, or other bothersome symptoms ] Prescriptions: New apixaban [Eliquis] 5 mg tablet See Label Instructions .ROUTE .COMPLEX Qty: 60 RF: 0 No Action atorvastatin 20 mg tablet 20 mg PO DAILY RF: 0 clopidogrel 75 mg tablet 75 mg PO DAILY RF: 0 oxycodone 5 mg tablet 5 mg PO Q4-6H PRN (Reason: pain) RF: 0 Referrals: Usman White MD [Physician] - Kiley Jameson MD [Primary Care Provider] -
[2018-02-12 06:49] LABS: Prothrombin Time 11.9 SECONDS (10.1-12.7)
[2018-02-12] MEDS: dilTIAZem 5 MG/ML SDV 20 MG IV (06:50)
[2018-02-12 06:52] LABS: PTT Partial Thromboplastin Tim 29 SECONDS (26.4-36.2)
[2018-02-12] MEDS: SODIUM CHLORIDE 0.9% 1,000 ML 1000 ML IV (06:52)
[2018-02-12 06:53] LABS: Blood Urea Nitrogen 9 mg/dL (9-20); Calcium 9.2 mg/dL (8.4-10.2); Carbon Dioxide 28 mmol/L (22-32); Chloride 103 mmol/L (98-107); Estimated Glomerular Filt Rate > 60.0 mL/min (>60); Glucose 120 mg/dL (80-110); HEMOLYSIS < 15 (0-50); Potassium 3.8 mmol/L (3.4-5.1); Sodium 142 mmol/L (137-145)
[2018-02-12 07:05] LABS: Troponin I 0.013 ng/mL (0.01-0.034)
--- NOTE | 2018-02-12 07:05 | PC.NURSE ---
Vital signs closely monitored during administration of Diltiazem. Pt states his pain has decreased but still feels some pressure. HR is still irregular.
--- NOTE | 2018-02-12 07:24 | DI.CT.S_ITS ---
PROCEDURE: CT ANGIO CHEST PE PROTOCOL INDICATIONS: Chest pain, shortness of breath, tachycardia TECHNIQUE: After the administration of intravenous contrast, 2 mm thick sections acquired from the pulmonary apices to the posterior costophrenic angles. 3-dimensional maximum intensity projection (MIP) coronal and sagittal reformats were then acquired through the thorax. For radiation dose reduction, the following was used: automated exposure control, adjustment of mA and/or kV according to patient size. COMPARISON: None. FINDINGS: Image quality: Excellent. Pulmonary arteries: Pulmonary arteries are normal in size, and demonstrate no intraluminal filling defects to suggest central pulmonary embolism. Lungs and pleura: Atelectasis noted in the dependent portion the lung bases. No pleural effusions or pneumothorax. Central and peripheral airways are patent. Mediastinum: Heart size is normal, without pericardial effusion. Atherosclerotic calcifications noted in the coronary vasculature. No mediastinal or hilar adenopathy. Thoracic aorta is normal in caliber and enhancement. Esophagus is normal in caliber, without hiatal hernia. There is a 1.2 x 0.8 cm soft tissue density mass in the posterior right margin of the upper thoracic trachea concerning for neoplastic process. Bones and chest wall: No suspicious bony lesions. Ribs and thoracic spine appear intact throughout. Spine degenerative disc disease and facet arthropathy. Thyroid gland is within normal limits. No axillary or supraclavicular adenopathy. Subcutaneous air noted in the anterior right lower neck soft tissues (series 4, images 8-19) possibly related to reported recent endarterectomy. Abdomen: Visualized upper abdominal solid organs appear normal in the early arterial phase of enhancement. IMPRESSION: 1. No pulmonary embolus. 2. Atherosclerosis including the coronary vasculature. 3. 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 Recommend pulmonology consultation. 4. Soft tissue gas involving the lower right neck possibly related to prior endarterectomy. Dictated by: Leslye Mckinney MD, PhD on 02/12/2018 at 7:55 Approved by: Leslye Mckinney MD, PhD on 02/12/2018 at 8:08
[2018-02-12] MEDS: dilTIAZem 125 MG in DEXTROSE 5 % IN WATER 100 ML IV (07:29)
[2018-02-12] MEDS: APIXABAN 5 MG TABLET 10 MG PO (10:04)
== END 2018-02-12 10:48 | disposition home or self-care (01) ==
PROVIDERS: Emergency Medicine; Emergency Provider Emergency Medicine; Family Provider Internal Medicine; PCP Internal Medicine
DX: I48.91 Unspecified atrial fibrillation (principal); I48.92 Unspecified atrial flutter
CPT/HCPCS: 36591; 71045; 71275; 80048; 83880; 84484; 85025; 85610; 85730; 93005; 93010; 96361; 96365; 96366; 96376; 99285; Q9967

== ENCOUNTER → 2018-06-03 07:07 | Outpatient (CLI) | payer MEDICARE, BC, SELFPAY ==
[2018-06-03 08:31] LABS: Alanine Aminotransferase 32 IU/L (21-72); Aspartate Aminotransferase 30 IU/L (17-59); BUN Creatinine Ratio 13.3 (6-22); Blood Urea Nitrogen 12 mg/dL (9-20); Calcium 9.6 mg/dL (8.4-10.2); Carbon Dioxide 29 mmol/L (22-32); Chloride 100 mmol/L (98-107); Cholesterol 218 mg/dL (140-199); Estimated Glomerular Filt Rate > 60.0 mL/min (>60); Glucose 96 mg/dL (80-110); HDL Cholesterol 47 mg/dL (40-60); HEMOLYSIS < 15 (0-50); LDL Cholesterol Calculated 156 mg/dL (<100); Potassium 4.2 mmol/L (3.4-5.1); Sodium 140 mmol/L (137-145); Triglycerides 74 mg/dL (35-150)
[2018-06-03 08:36] LABS: Hemoglobin A1C% w Est Avg Glu 5.3 % (4.0-6.0)
[2018-06-03 09:01] LABS: Prostate Specific Antigen 0.373 ng/mL (0.10-4.00)
== END ==
PROVIDERS: PCP Internal Medicine; Visit Provider Internal Medicine
DX: I48.91 Unspecified atrial fibrillation (principal); E78.5 Hyperlipidemia, unspecified; R73.01 Impaired fasting glucose; Z12.5 Encounter for screening for malignant neoplasm of prostate; Z13.1 Encounter for screening for diabetes mellitus
CPT/HCPCS: 36415; 80048; 80061; 83036; 84153; 84450; 84460; G0103

== ENCOUNTER → 2018-06-04 13:14 | Outpatient (CLI) | payer MEDICARE, BC, SELFPAY ==
--- NOTE | 2018-06-04 | DI.CT.S_ITS ---
PROCEDURE: CT SOFT TISSUE NECK W CON INDICATIONS: OTHER SPECIFIED DISEASE OF UPPER RESPIRATORY TECHNIQUE: After the administration of intravenous contrast, 3.0 mm axial sections acquired from the sella to the aortic arch. Additional oblique axial 3.0 mm sections acquired through the pharynx. 3 mm thick coronal and sagittal reformats were generated. For radiation dose reduction, the following was used: automated exposure control. COMPARISON: [facility], CT, CT ANGIO CHEST PE PROTOCOL, 02/12/2018, 7:25. [facility], CT, CT CHEST W CON, 06/04/2018, 13:27. FINDINGS: Image quality: Excellent. Lymph nodes: No enlarged lymph nodes seen throughout the neck. Vessels: Visualized vasculature appears patent. Atherosclerotic irregularity can be seen involving the bifurcation regions. Postoperative clips are seen adjacent to the right carotid bifurcation. Please correlate with prior right carotid endarterectomy. 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 The oropharynx, nasopharynx, and pharynx demonstrate no mucosal lesions. The vocal cords, false vocal cords, pyriform sinuses, epiglottis, vallecula, and tongue base all appear normal. Extramucosal spaces appear unremarkable. Glands: The parotid and submandibular glands appear normal. Thyroid gland demonstrates no significant CT abnormality. Miscellaneous: Visualized brain and orbits appear normal. Mild dependent groundglass opacity can be seen within the visualized lung apices. Superficial soft tissues appear normal. Bones: No suspicious bony lesions. Visualized sinuses and mastoids appear unremarkable. Age-appropriate bony degenerative changes are seen. 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 This may be related to resolved mucous within the trachea. Mild dependent groundglass opacity can be seen within the visualized lung apices. This may be related to mild pulmonary edema. Please correlate with known patient history. Incidental note is made of: Apparent prior right carotid endarterectomy. Dictated by: Lui Alonso M.D. on 06/04/2018 at 13:33 Approved by: Lui Alonso M.D. on 06/04/2018 at 13:37
--- NOTE | 2018-06-04 | DI.CT.S_ITS ---
PROCEDURE: CT CHEST W CON INDICATIONS: Upper tracheal filling defect TECHNIQUE: After the administration of intravenous contrast, 5 mm thick sections acquired from the pulmonary apices to the posterior costophrenic angles. 7 mm thick coronal and sagittal MIP reformats were acquired. For radiation dose reduction, the following was used: automated exposure control, adjustment of mA and/or kV according to patient size. COMPARISON: [facility], CT, CT ANGIO CHEST PE PROTOCOL, 02/12/2018, 7:25. FINDINGS: Image quality: Excellent. Lungs and pleura: No acute air space opacities. The dependent atelectasis in posterior aspect of bilateral lung valdez are seen. No discrete pulmonary nodule or mass. No pleural effusions or pneumothorax. Central and peripheral airways are patent and normal in caliber. Previously described upper tracheal filling defect is no longer seen, likely represent resolved inflammatory material. Mediastinum: Heart size is normal. No pericardial effusion. No mediastinal or hilar adenopathy by size criteria. Thoracic aorta and central pulmonary arteries are normal in size. Coronary artery calcifications are again seen. Esophagus is normal in caliber. No hiatal hernia. Bones and chest wall: No suspicious bony lesions. No vertebral body compression fractures. No axillary or supraclavicular adenopathy by size criteria. Thyroid gland is unremarkable. Abdomen: Visualized upper abdominal solid organs appear normal. Upper abdominal bowel loops are normal in caliber. 3 well-circumscribed subcentimeter hypodensities are again seen in left hepatic lobe, likely represent hepatic cysts. IMPRESSION: #1. Previously described soft tissue density structure in upper trachea is no longer present and likely represent resolved inflammatory material. Airway is patent on the current study. #2. Bilateral lungs are essentially clear. #3. No mediastinal adenopathy. #4. Tiny hypodensities in left hepatic lobe likely represent hepatic cysts. Dictated by: Delmer Mckeon M.D. on 06/04/2018 at 14:51 Approved by: Delmer Mckeon M.D. on 06/04/2018 at 14:56
== END ==
PROVIDERS: PCP Internal Medicine; Visit Provider Internal Medicine Critical Care Medicine
DX: J39.8 Other specified diseases of upper respiratory tract (principal); I25.10 Atherosclerotic heart disease of native coronary artery without angina pectoris
CPT/HCPCS: 70491; 71260; Q9967

== ENCOUNTER → 2018-07-06 10:43 | Outpatient (REF) | payer MEDICARE, BC, SELFPAY ==
[2018-07-06 11:19] LABS: Cholesterol 207 mg/dL (140-199); Glucose Promotional 104 mg/dL (80-110); HDL Cholesterol 43 mg/dL (40-60); LDL Cholesterol Calculated 144 mg/dL (<100); Triglycerides 98 mg/dL (35-150)
== END ==
LOC: LAB 10:43
PROVIDERS: PCP Internal Medicine
DX: Z13.1 Encounter for screening for diabetes mellitus (principal); Z13.220 Encounter for screening for lipoid disorders
CPT/HCPCS: 80061; 82947

== ENCOUNTER → 2018-12-28 07:41 | Outpatient (CLI) | payer SELFPAY ==
[2018-12-28 09:11] LABS: Cholesterol 217 mg/dL (140-199); Glucose Promotional 98 mg/dL (80-110); HDL Cholesterol 52 mg/dL (40-60); LDL Cholesterol Calculated 154 mg/dL (<100); Triglycerides 55 mg/dL (35-150)
== END ==
PROVIDERS: PCP Internal Medicine
DX: Z13.9 Encounter for screening, unspecified (principal)
CPT/HCPCS: 80061; 82947

== ENCOUNTER 2019-05-03 12:57 | Emergency (ER) | payer MEDICARE, BC, SELFPAY ==
[2019-05-03 13:02] VITALS: BP 187/75; PULSE 65; RESP 16; TEMP 36.9; O2SAT 99; BMI 24.7
--- NOTE | 2019-05-03 13:22 | ED_ITS ---
HPI - Dizziness General Chief Complaint: Dizziness Stated Complaint: DIZZY NAUSEA Time Seen by Provider: 05/03/19 13:21 Source: patient Mode of arrival: Ambulatory Limitations: no limitations History of Present Illness HPI Narrative: This is a 78-year-old male who comes to the emergency department and states that he has had dizziness. He states that it is worse when he goes from a lying to standing position. Particularly in the morning. This morning at 2:30 a.m. it was quite severe and he felt like he was going to fall down or pass out. He states been going on for the last 3 days. Diminishes the longer he is upright and this the day goes by he does not have issues. He states that last night he slept in the chair and then got up and it was less intense. I states last night he was also quite sweaty with this episode. He denies headache, he denies vision changes, he denies any numbness, tingling or weakness. He states the room does not feel like it is spinning it is more like he is dizzy or might pass out. He has not had an actual syncopal episode. He states he does not get any tunnel vision. He has been nauseated with the episodes but denies any vomiting. He denies any chest pain or pressure, no shortness of breath or abdominal pain. Has a history of episode of atrial fibrillation, a TIA with vision change although he states that nothing specific was found. He had and endarterectomy in February of 2018. He states he does not take any medications or blood thinners, no aspirin or Plavix no statins or other medications regularly. He has an allergic reaction to tree nuts, no tobacco, occasional alcohol and no illicit. Primary care is Dr. Jameson he follows with Dr. Saunders for his carotid. Related Data Home Medications Medication Instructions Recorded Confirmed Vitamin C 1 tab PO DAILY 05/03/19 05/03/19 Vitamin D3 1 cap PO DAILY 05/03/19 05/03/19 magnesium 1 tab PO DAILY 05/03/19 05/03/19 multivitamin 1 tab PO DAILY 05/03/19 05/03/19 resveratrol 1 cap PO DAILY 05/03/19 05/03/19 vitamin K 1 tab PO DAILY 05/03/19 05/03/19 Allergies Allergy/AdvReac Type Severity Reaction Status Date / Time No Known Drug Allergies Allergy Verified 02/12/18 07:01 Review of Systems Review of Systems ROS Unobtainable: All systems reviewed & are unremarkable except as noted in HPI and below Patient History Medical History Atrial fibrillation (Acute) Hx-TIA (transient ischemic attack) (Acute) Surgical History H/O carotid endarterectomy (Acute) Social History marital status: lives independently: Yes Smoking Status: Never smoker Smoking Status: Never smoker alcohol intake frequency: a few times a week Alcohol type: beer and wine Substance Use Type: does not use Exam Narrative Exam Narrative: GEN: thin, elderly appearing male, alert and oriented x 3, patient appears to be in mild distress. Patient is laying mostly flat on gurney. HEENT: Atraumatic, pupils are equal round reactive to light, extraocular movements are intact, no nystagmus, nares are clear, TMs are clear with no fluid, there is no conjunctival pallor. Throat is clear without any exudates, erythema, tonsillar enlargement or uvular deviation, no facial droop, HEART: Regular rate and rhythm without murmur, clicks, rubs. No carotid bruits, pulses are equal in upper and lower extremities LUNGS:Lungs clear to auscultation, no wheezes, rales, crackles, chest moves symmetrically ABD:bowel sounds normal, soft, non-tender, no guarding, rebound, rigidity, no masses noted, no hepatosplenomegaly :No CVA tenderness MSCL: Non-tender, no muscle atrophy, muscles strength 5/5 upper and lower extremities, full range of motion NEURO:CN 2-12 intact, sensation normal. finger nose finger test normal, heel quintero test normal, romberg normal SKIN: no rashes, erythema or skin changes. Initial Vital Signs Initial Vital Signs: Vital Signs Temperature 98.5 F 05/03/19 13:02 Pulse Rate 65 05/03/19 13:02 Respiratory Rate 16 05/03/19 13:02 Blood Pressure 187/75 H 05/03/19 13:02 Pulse Oximetry 99 05/03/19 13:02 Course Orders Ordered: ED Orders 05/03/19 13:15 Basic Metabolic Panel Stat Complete Blood Count AUTO DIFF Stat Lipase Stat Partial Thromboplastin Time Stat Prothrombin Time INR Stat Troponin I Stat 05/03/19 13:18 EKG-12 Lead Stat 05/03/19 13:43 CT head/brain wo con Stat 05/03/19 13:52 XR chest 2V Stat Discontinued Medications Sodium Chloride (Normal Saline 0.9%) 1,000 mls @ 150 mls/hr IV CONT NGOZI Last Admin: 05/03/19 15:33 Dose: Not Given Documented by: JAMEY Sodium Chloride (Normal Saline 0.9%) 1,000 mls @ 1,000 mls/hr IV BOLUS ONE Stop: 05/03/19 14:40 Last Infusion: 05/03/19 15:29 Dose: 0 mls/hr Documented by: Admin: 05/03/19 14:35 Dose: 1,000 mls/hr Documented by: JAMEY Vital Signs Vital signs: Vital Signs - 8 hr 05/03/19 13:02 05/03/19 14:00 05/03/19 14:29 Temperature 98.5 F Pulse Rate 65 50 L Pulse Rate [Orthostatic Lying] 61 Pulse Rate [Orthostatic Sitting] 63 Pulse Rate [Orthostatic Standing] 71 Respiratory Rate 16 17 Blood Pressure 187/75 H Blood Pressure [Orthostatic Lying] 147/72 H Blood Pressure [Orthostatic Sitting] 147/70 H Blood Pressure [Orthostatic Standing] 165/72 H Blood Pressure [Right Arm] 155/68 H Pulse Oximetry 99 100 05/03/19 15:00 05/03/19 15:29 Temperature Pulse Rate 57 L 66 Pulse Rate [Orthostatic Lying] Pulse Rate [Orthostatic Sitting] Pulse Rate [Orthostatic Standing] Respiratory Rate 16 Blood Pressure 165/72 H Blood Pressure [Orthostatic Lying] Blood Pressure [Orthostatic Sitting] Blood Pressure [Orthostatic Standing] Blood Pressure [Right Arm] 147/69 H Pulse Oximetry 99 100 MDM - Dizziness Lab Data Attestation: I reviewed the patient's lab results. Result diagrams: 05/03/19 13:15 05/03/19 13:15 Labs: Lab Results 05/03/19 05/03/19 05/03/19 Range/Units 13:15 13:15 13:15 WBC 5.4 (4.5-11.0) X10^3/uL RBC 4.35 L (4.5-5.9) X10^6/uL Hgb 13.1 L (13.5-17.5) g/dL Hct 39.3 L (41-53) % MCV 90.3 (80-100) fL MCH 30.2 (26-34) PG MCHC 33.4 (30-36) % RDW 14.2 (11.6-14.8) % Plt Count 182 (150-400) X10^3/uL Neut % (Auto) 68.7 (50-75) % Lymph % (Auto) 19.2 L (25-40) % [place] % (Auto) 7.3 (3-14) % Eos % (Auto) 4.0 (2-4) % Baso % (Auto) 0.8 (0-2) % Neut # (Auto) 3700 (4998-7067) /uL Lymph # (Auto) 1000 L (9897-1211) /uL [place] # (Auto) 400 (0-900) /uL Eos # (Auto) 200 (0-450) /uL Baso # (Auto) 0 (0-100) /uL PT 11.9 (10.1-12.7) SECONDS INR 1.0 (0.9-1.3) APTT 31 D (26.4-36.2) SECONDS Sodium 140 (137-145) mmol/L Potassium 3.9 (3.4-5.1) mmol/L Chloride 103 (98-107) mmol/L Carbon Dioxide 28 (22-32) mmol/L BUN 11 (9-20) mg/dL Creatinine 0.70 (0.66-1.25) mg/dL Estimated GFR > 60.0 (>60) mL/min BUN/Creatinine Ratio 15.7 (6-22) Glucose 109 (80-110) mg/dL Calcium 9.6 (8.4-10.2) mg/dL Troponin I < 0.012 (0.01-0.034) ng/mL Lipase (23-300) U/L 05/03/19 Range/Units 13:15 WBC (4.5-11.0) X10^3/uL RBC (4.5-5.9) X10^6/uL Hgb (13.5-17.5) g/dL Hct (41-53) % MCV (80-100) fL MCH (26-34) PG MCHC (30-36) % RDW (11.6-14.8) % Plt Count (150-400) X10^3/uL Neut % (Auto) (50-75) % Lymph % (Auto) (25-40) % [place] % (Auto) (3-14) % Eos % (Auto) (2-4) % Baso % (Auto) (0-2) % Neut # (Auto) (7717-0265) /uL Lymph # (Auto) (7252-9014) /uL [place] # (Auto) (0-900) /uL Eos # (Auto) (0-450) /uL Baso # (Auto) (0-100) /uL PT (10.1-12.7) SECONDS INR (0.9-1.3) APTT (26.4-36.2) SECONDS Sodium (137-145) mmol/L Potassium (3.4-5.1) mmol/L Chloride (98-107) mmol/L Carbon Dioxide (22-32) mmol/L BUN (9-20) mg/dL Creatinine (0.66-1.25) mg/dL Estimated GFR (>60) mL/min BUN/Creatinine Ratio (6-22) Glucose (80-110) mg/dL Calcium (8.4-10.2) mg/dL Troponin I (0.01-0.034) ng/mL Lipase 116 (23-300) U/L Imaging Data CT scan - head: Radiologist's Impression: Domenic Carrillo Mary 78 M [address] [place] [address] CT Scan Report Signed Patient: Domenic Carrillo BMR#: [id number] : 2Acct:[id number] Age/Sex: 78 / MDate of Service: 05/03/19 Loc: ED Accession Number: [id number] Procedure: CT head/brain wo con Ordering Provider: Lyndsay Barlow D.O. PROCEDURE: CT HEAD/BRAIN WO CON INDICATIONS: dizziness TECHNIQUE: Noncontrast 4.5 mm thick angled axial sections acquired from the foramen magnum to the vertex, with coronal and sagittal reformats. For radiation dose reduction, the following was used: automated exposure control, adjustment of mA and/or kV according to patient size. COMPARISON: [facility], CT, HEAD WITHOUT CONTRAST, 07/07/2009, 21:52. FINDINGS: Image quality: Excellent. CSF spaces: Basal cisterns are patent. No extra-axial fluid collections. Ventricles are normal in size and shape. Brain: No midline shift. No intracranial masses or hemorrhage. Camilo-white matter interface is normal. Skull and face: Calvarium and visualized facial bones are intact, without suspicious lesions. Sinuses: Visualized sinuses and mastoids are clear. IMPRESSION: Normal for age, source of current dizziness symptoms is not seen. Dictated by: Sukumar Perez M.D. on 05/03/2019 at 14:06 Approved by: Sukumar Perez M.D. on 05/03/2019 at 14:07 Chest x-ray: Radiologist's Impression: [address] [address] XRay Report Signed Patient: Domenic Carrillo BMR#: [id number] : 2Acct:[id number] Age/Sex: 78 / MDate of Service: 05/03/19 Loc: ED Accession Number: [id number] Procedure: XR chest 2V Ordering Provider: Lyndsay Barlow D.O. PROCEDURE: XR CHEST 2V INDICATIONS: dizziness TECHNIQUE: 2 views of the chest were acquired. COMPARISON: [facility], CR, XR CHEST 1V, 02/12/2018, 6:32. FINDINGS: Surgical changes and devices: None. Lungs and pleura: Lungs are clear. No pleural effusions or pneumothorax. Mediastinum: Mediastinal contours are normal. Heart size is borderline enlarged. Bones and chest wall: No suspicious bony abnormalities. Soft tissues appear unremarkable. IMPRESSION: Borderline cardiomegaly without overt heart failure or definite pneumonia. Dictated by: Tee Daigle M.D. on 05/03/2019 at 13:11 Approved by: Tee Daigle M.D. on 05/03/2019 at 13:12 ECG Data Attestation: I personally reviewed and interpreted this ECG as follows: Prior ECG tracings: available for review Interpretation: Sinus bradycardia rate of 58 P are 174 QRS of 98 QTC 418. Patient has T-wave inversion in 3. No elevation appreciated maybe 0.5 mm in 1 and aVL. Patient has prior EKG from 02/12/2019 after cardioversion and appears similar to today's ST segments. [facility] Narrative Medical decision making narrative: Patient comes to department with complaint of dizziness with standing from laying position x 3 days. Worse in the am. Patient here is hypertensive with negative orthostatics. Is asymptomatic upon standing in the department. Labs show anemia that is very mild with baseline status. No leukocytosis. Coags are negative, left lytes are normal with normal renal function and troponin. Borderline cardiomegaly without heart failure de finitive pneumonia and head CT shows no acute change. Patient had some old CTs of the chest which initially showed a soft tissue mass but this resolved on repeat imaging. EKG appears similar to prior. Patient has not had any arrhythmias in the department. He does have a history of endarterectomy although he is currently not taking any medications all. Urine showed ketones and trace blood. Patient's dizziness do not seem to be cardiac in nature, there does not seem to be any vertigo component he seems to be more lightheaded or feeling like he is going to pass out or presyncopal. We were unable to elicit symptoms here in the department. Patient to increase fluids and follow up with pcp and return if new or worsening symptoms. Discharge Plan Departure Patient Disposition: Home Clinical Impression: Dizziness Discharge Date/Time: 05/03/19 15:30 Instructions: DI for Dizziness-Nonvertigo Activity Restrictions/Additional Instructions: Follow up with primary care in the next several days for recheck. Make sure you are drinking plenty of fluids. Return to ER for new or worsening symptoms, passing out, recurrent lightheadedness, severe headaches, new vision changes, new numbness, weakness or tingling, new chest pain or shortness of breath, persistent vomiting, no abdominal pain or back flank pain, other new or concerning symptoms. Prescriptions: No Action multivitamin Tablet 1 tab PO DAILY RF: 0 Vitamin C 1 tab PO DAILY RF: 0 Vitamin D3 1 cap PO DAILY RF: 0 magnesium 1 tab PO DAILY RF: 0 resveratrol 1 cap PO DAILY RF: 0 vitamin K 1 tab PO DAILY RF: 0 Referrals: Kiley Jameson MD [Primary Care Provider] -
[2019-05-03 13:28] LABS: Add Manual Diff / Slide Review NO; Basophils Absolute Auto 0 /uL (0-100); Basophils Percent Auto 0.8 % (0-2); Eosinophils Absolute Auto 200 /uL (0-450); Hematocrit 39.3 % (41-53); Hemoglobin 13.1 g/dL (13.5-17.5); Lymphocytes Absolute Auto 1000 /uL (1100-4500); Lymphocytes Percent Auto 19.2 % (25-40); Mean Corpuscular HGB Conc 33.4 % (30-36); Mean Corpuscular Hemoglobin 30.2 PG (26-34); Mean Corpuscular Volume 90.3 fL (80-100); Monocytes Absolute Auto 400 /uL (0-900); Monocytes Percent Auto 7.3 % (3-14); Neutrophils Absolute Auto 3700 /uL (1500-7000); Neutrophils Percent Auto 68.7 % (50-75); Platelet Count 182 X10^3/uL (150-400); Red Blood Cell Count 4.35 X10^6/uL (4.5-5.9); Red Cell Distribution Width 14.2 % (11.6-14.8); White Blood Cell Count 5.4 X10^3/uL (4.5-11.0)
[2019-05-03 13:37] LABS: Prothrombin Time 11.9 SECONDS (10.1-12.7)
[2019-05-03 13:39] LABS: PTT Partial Thromboplastin Tim 31 SECONDS (26.4-36.2)
--- NOTE | 2019-05-03 13:43 | DI.CT.S_ITS ---
PROCEDURE: CT HEAD/BRAIN WO CON INDICATIONS: dizziness TECHNIQUE: Noncontrast 4.5 mm thick angled axial sections acquired from the foramen magnum to the vertex, with coronal and sagittal reformats. For radiation dose reduction, the following was used: automated exposure control, adjustment of mA and/or kV according to patient size. COMPARISON: [facility], CT, HEAD WITHOUT CONTRAST, 07/07/2009, 21:52. FINDINGS: Image quality: Excellent. CSF spaces: Basal cisterns are patent. No extra-axial fluid collections. Ventricles are normal in size and shape. Brain: No midline shift. No intracranial masses or hemorrhage. Camilo-white matter interface is normal. Skull and face: Calvarium and visualized facial bones are intact, without suspicious lesions. Sinuses: Visualized sinuses and mastoids are clear. IMPRESSION: Normal for age, source of current dizziness symptoms is not seen. Dictated by: Sukumar Perez M.D. on 05/03/2019 at 14:06 Approved by: Sukumar Perez M.D. on 05/03/2019 at 14:07
[2019-05-03 13:44] LABS: BUN Creatinine Ratio 15.7 (6-22); Blood Urea Nitrogen 11 mg/dL (9-20); Calcium 9.6 mg/dL (8.4-10.2); Carbon Dioxide 28 mmol/L (22-32); Chloride 103 mmol/L (98-107); Estimated Glomerular Filt Rate > 60.0 mL/min (>60); Glucose 109 mg/dL (80-110); HEMOLYSIS < 15 (0-50); Potassium 3.9 mmol/L (3.4-5.1); Sodium 140 mmol/L (137-145)
--- NOTE | 2019-05-03 13:52 | DI.RAD.S_ITS ---
PROCEDURE: XR CHEST 2V INDICATIONS: dizziness TECHNIQUE: 2 views of the chest were acquired. COMPARISON: [facility], CR, XR CHEST 1V, 02/12/2018, 6:32. FINDINGS: Surgical changes and devices: None. Lungs and pleura: Lungs are clear. No pleural effusions or pneumothorax. Mediastinum: Mediastinal contours are normal. Heart size is borderline enlarged. Bones and chest wall: No suspicious bony abnormalities. Soft tissues appear unremarkable. IMPRESSION: Borderline cardiomegaly without overt heart failure or definite pneumonia. Dictated by: Tee Daigle M.D. on 05/03/2019 at 13:11 Approved by: Tee Daigle M.D. on 05/03/2019 at 13:12
[2019-05-03 13:55] LABS: Lipase 116 U/L (23-300)
[2019-05-03 13:56] LABS: Troponin I < 0.012 ng/mL (0.01-0.034)
[2019-05-03 14:00] VITALS: BP 155/68; PULSE 50; RESP 17; O2SAT 100
[2019-05-03 14:29] VITALS: BP 147/70; BP 147/72; BP 165/72; PULSE 61; PULSE 63; PULSE 71
[2019-05-03] MEDS: SODIUM CHLORIDE 0.9% 1,000 ML 1000 ML IV (14:35)
[2019-05-03 15:00] VITALS: BP 147/69; PULSE 57; RESP 16; O2SAT 99
[2019-05-03 15:29] VITALS: BP 165/72; PULSE 66; O2SAT 100
== END 2019-05-03 15:30 | disposition home or self-care (01) ==
PROVIDERS: Emergency Provider Emergency Medicine; PCP Internal Medicine
DX: R42 Dizziness and giddiness (principal)
CPT/HCPCS: 36415; 70450; 71046; 80048; 83690; 84484; 85025; 85610; 85730; 93005; 96360; 99284; 99285

== ENCOUNTER 2021-05-29 11:56 | Emergency (ER) | payer MEDICARE, BC, SELFPAY ==
[2021-05-29 12:01] VITALS: BP 185/79; PULSE 61; RESP 14; TEMP 36.1; O2SAT 99; BMI 25.8
[2021-05-29 12:34] VITALS: BP 165/72; PULSE 66; O2SAT 98
--- NOTE | 2021-05-29 12:41 | PC.NURSE ---
Pt states he had a lump on his lower right groin that had been present for about 1 week. States pain was at times sharp and sometimes dull. Yesterday pt massaged lump and the lump went away. Currently reports no pain and no lump is present on assessment.
[2021-05-29 13:00] VITALS: BP 139/68; PULSE 62; O2SAT 97
--- NOTE | 2021-05-29 13:24 | ED.SKABFB ---
HPI - Skin/Abscess/Foreign Bdy General Chief complaint: Skin/Abscess/Foreign Body Stated complaint: thinks he has a hernia, pain/lump in abd Time Seen by Provider: 05/29/21 13:18 Source: patient Mode of arrival: Ambulatory Limitations: no limitations History of Present Illness HPI narrative: Patient is a 80-year-old male who is here for evaluation of what he thinks is a hernia. He states that yesterday he had a fairly sudden onset of discomfort in is right lower abdomen. He felt the area and there was a lump. Was soft. Over time he was able to massage the lump back into his abdomen in the discomfort went away. He had a recurrence of the same symptoms this morning and was also able to push it back in. He denies any nausea vomiting. No fevers. No testicular pain. No change in bowel habits. No urinary symptoms. No prior abdominal surgeries. Related Data Home Medications Medication Instructions Recorded Confirmed Vitamin C 1 tab PO DAILY 05/03/19 05/03/19 Vitamin D3 1 cap PO DAILY 05/03/19 05/03/19 magnesium 1 tab PO DAILY 05/03/19 05/03/19 multivitamin 1 tab PO DAILY 05/03/19 05/03/19 resveratrol 1 cap PO DAILY 05/03/19 05/03/19 vitamin K 1 tab PO DAILY 05/03/19 05/03/19 Allergies Allergy/AdvReac Type Severity Reaction Status Date / Time No Known Drug Allergies Allergy Verified 02/12/18 07:01 Review of Systems Constitutional Constitutional: Denies fever(s) Gastrointestinal Gastrointestinal: Reports system reviewed and no additional complaints, except as documented Genitourinary Genitourinary: Reports system reviewed and no additional complaints, except as documented Integumentary/Breasts Skin/Breast: Reports system reviewed and no additional complaints, except as documented Patient History Medical History Atrial fibrillation Hx-TIA (transient ischemic attack) Surgical History H/O carotid endarterectomy Social History marital status: lives independently: Yes Smoking Status: Never smoker Smoking Status: Never smoker alcohol intake frequency: a few times a week Alcohol type: beer and wine Substance Use Type: does not use Exam Initial Vital Signs Initial Vital Signs: Vital Signs Temperature 97.0 F L 05/29/21 12:01 Pulse Rate 61 05/29/21 12:01 Respiratory Rate 14 05/29/21 12:01 Blood Pressure 185/79 H 05/29/21 12:01 Pulse Oximetry 99 05/29/21 12:01 HENMT Head: normal to inspection and normocephalic GI Inspection: normal to inspection, non-distended and no visible herniation Palpation: soft, No firm, No hernia and No tender External: normal external exam, circumcised, no erythema, no hernia, no lesions and nontender Penis: normal penis Testes: normal Skin General: no rashes or lesions noted Neuro General: patient alert, patient awake and moves all extremities Extrem General: normal to inspection and capillary refill normal Course Vital Signs Vital signs: Vital Signs - 8 hr 05/29/21 12:01 05/29/21 12:34 05/29/21 13:00 Temperature 97.0 F L Pulse Rate 61 66 62 Respiratory Rate 14 Blood Pressure 185/79 H 165/72 H 139/68 Pulse Oximetry 99 98 97 MDM - Skin/Abscess/Foreign Bdy Lab Data Labs: Urine Dip Bedside Urine Glucose Negative Bedside Urine Bilirubin - Negative Bedside Urine Ketone - Negative Urine Specific [place] 1.015 Bedside Urine Occult Blood - Negative Bedside Urine pH 6.0 Bedside Urine Protein - Negative Bedside Urine Urobilinogen - Negative Bedside Urine Nitrite - Negative Bedside Urine Leukocytes - Negative Esterase MDM Narrative Medical decision making narrative: Patient history is consistent with hernia however no specific hernias felt on exam today. He is not having any discomfort. There is no indication for any radiologic studies. I did discuss hernias with him and family at bedside. We discussed return precautions. He was given follow-up information for General surgery to discuss potential further evaluation. He expressed understanding and agreement. Discharge Plan Departure Patient Disposition: Home Clinical Impression: Hernia Instructions: DI for Groin Hernia Activity Restrictions/Additional Instructions: Your history exam today has consistent with a hernia. I do recommend that you contact the general surgery department at the number listed below for a follow-up. Return to the emergency department for any new or worsening symptoms. Prescriptions: No Action multivitamin Tablet 1 tab PO DAILY 0RF Vitamin C 1 tab PO DAILY 0RF Vitamin D3 1 cap PO DAILY 0RF magnesium 1 tab PO DAILY 0RF resveratrol 1 cap PO DAILY 0RF vitamin K 1 tab PO DAILY 0RF Referrals: Yanci Anne MD [Physician] - Kiley Jameson MD [Primary Care Provider] -
== END 2021-05-29 13:31 | disposition home or self-care (01) ==
PROVIDERS: Emergency Provider Emergency Medicine; PCP Internal Medicine
DX: K46.9 Unspecified abdominal hernia without obstruction or gangrene (principal)
CPT/HCPCS: 81003; 99281; 99282

== ENCOUNTER → 2022-08-14 14:47 | Outpatient (CLI) | payer MEDICARE, BC, SELFPAY ==
--- NOTE | 2022-08-14 | DI.CT.S_ITS ---
PROCEDURE: CT HEAD/BRAIN WO CON INDICATIONS: Acute post-traumatic headache, intractable TECHNIQUE: Noncontrast 4.5 mm thick angled axial sections acquired from the foramen magnum to the vertex, with coronal and sagittal reformats. For radiation dose reduction, the following was used: automated exposure control, adjustment of mA and/or kV according to patient size. COMPARISON: [facility], CT, CT HEAD/BRAIN WO CON, 05/03/2019, 13:52. [facility], CT, CT HEAD WITHOUT CONTRAST, 07/27/2022, 11:45. FINDINGS: Image quality: Excellent. CSF spaces: Basal cisterns are patent. No extra-axial fluid collections. The ventricles are symmetric in size and shape. Brain: No intracranial bleeds or masses. There is cerebral volume loss for age, with resultant ventricular and sulcal prominence. There are periventricular and deep white matter chronic small vessel ischemic changes. There is intracranial internal carotid artery atherosclerosis. Symmetric calcification can be seen involving the basal ganglia, which is considered to be normal for age. Skull and face: Calvarium and visualized facial bones appear intact, without suspicious lesions. Sinuses: Moderate mucosal thickening is seen within the paranasal sinuses. No abnormal fluid is seen within the mastoid air cells. IMPRESSION: No acute intracranial hemorrhage is seen. No significant change from the prior. No acute intracranial process is seen. Additional findings: Moderate paranasal sinus disease Dictated by: Lui Alonso M.D. on 08/14/2022 at 14:17 Approved by: Lui Alonso M.D. on 08/14/2022 at 14:18
== END ==
PROVIDERS: PCP Internal Medicine; Referring Provider Internal Medicine; Visit Provider Internal Medicine
DX: G44.311 Acute post-traumatic headache, intractable (principal); J32.8 Other chronic sinusitis
CPT/HCPCS: 70450

== ENCOUNTER 2023-02-28 18:40 | Observation (INO) | payer MEDICARE, BC, SELFPAY ==
[2023-02-28] VITALS (67 sets, daily range): BP systolic 94–178; BP diastolic 55–78; PULSE 67–172; RESP 11–30; TEMP 36.9; O2SAT 95–100; BMI 25.0
--- NOTE | 2023-02-28 18:52 | DI.RAD.S_ITS ---
PROCEDURE: XR CHEST 1V INDICATIONS: chest pain TECHNIQUE: One view of the chest was acquired. COMPARISON: [facility], CR, XR CHEST 2V, 05/03/2019, 13:52. FINDINGS: Surgical changes and devices: None. Lungs and pleura: An incomplete inspiratory result is noted, causing a crowded appearance to the lung markings. No focal infiltrates are seen. No pneumothorax or significant pleural effusions are seen. Mediastinum: Mediastinal contours appear normal. Heart size is near the upper limits of normal. Bones and chest wall: No suspicious bony lesions. Age-appropriate bony degenerative changes are seen. Overlying soft tissues appear unremarkable. IMPRESSION: Low lung volumes, without an acute abnormality seen by plain film. Heart size at the upper limits of normal. Dictated by: Lui Alonso M.D. on 02/28/2023 at 18:37 Approved by: Lui Alonso M.D. on 02/28/2023 at 18:39
--- NOTE | 2023-02-28 19:02 | ED_ITS ---
HPI - Chest Pain General Chief Complaint: Chest Pain Stated Complaint: chest pain Time Seen by Provider: 02/28/23 19:02 Source: patient Mode of arrival: Ambulatory Limitations: no limitations History of Present Illness HPI narrative: 82-year-old gentleman with a history of paroxysmal atrial fibrillation and a history of carotid endarterectomy in 2018 states that he woke up this morning at 1:30 a.m. with chest pain and around 4:00 p.m. this afternoon felt that his heart rate was perhaps slightly increased. He notes that he has not had any recent fever, cough, chills or other viral syndromes. He is not had any symptoms of atrial fibrillation according to his recollection since postop in 2018, he does not recall the atrial fibrillation visit in 2019 to [facility]. He is not complaining of any neurologic complaints does not describe orthopnea. He notes that this morning when he awoke with the chest pain he was also having chills. Does not report abdominal pain, vomiting, diarrhea, dysuria, flank pain or any skin concerns or changes Related Data Home Medications Medication Instructions Recorded Confirmed Vitamin C 1 tab PO DAILY 05/03/19 05/03/19 Vitamin D3 1 cap PO DAILY 05/03/19 05/03/19 magnesium 1 tab PO DAILY 05/03/19 05/03/19 multivitamin 1 tab PO DAILY 05/03/19 05/03/19 resveratrol 1 cap PO DAILY 05/03/19 05/03/19 vitamin K 1 tab PO DAILY 05/03/19 05/03/19 Allergies Allergy/AdvReac Type Severity Reaction Status Date / Time No Known Drug Allergies Allergy Verified 07/28/22 11:53 Review of Systems Review of Systems Narrative: Pertinent positive and negative findings as per HPI Patient History Medical History (Updated 02/28/23 @ 22:50 by Huma Farrell MD) Atrial fibrillation Hx-TIA (transient ischemic attack) Surgical History H/O carotid endarterectomy Social History marital status: lives independently: Yes Smoking Status: Never smoker Smoking Status: Never smoker alcohol intake frequency: holidays/special occasions only Alcohol type: beer and wine Substance Use Type: does not use Exam Initial Vital Signs Initial Vital Signs: Vital Signs Temperature 98.4 F 02/28/23 18:43 Pulse Rate 160 H 02/28/23 18:43 Respiratory Rate 18 02/28/23 18:43 Blood Pressure 143/78 H 02/28/23 18:43 Pulse Oximetry 97 02/28/23 18:43 Oxygen Delivery Method Room Air 02/28/23 18:43 General: Healthy appearing, in no acute distress. Able to give a complete and coherent history. Well-nourished well-developed HEENT: Moist mucous membranes, normal sclera with reactive pupils, Neck: No JVD, supple Respiratory: Lungs are clear to auscultation, no wheezing no rales no rhonchi. Full and symmetrical air movement Cardiac: Significantly tachycardic without murmurs Abdomen: Soft, nontender, good bowel tones, no flank pain Skin: Warm and dry, no rashes, Neurologic: Grossly neurologically intact with no obvious asymmetries or abnormalities Extremities: No trauma, well perfused, no lower extremity edema Psych: Cooperative, appropriate insight and affect Course Orders Ordered: ED Orders 02/28/23 18:52 XR chest 1V Stat EKG-12 Lead Stat 02/28/23 18:54 BNP [NT-proBNP (BNP-Adult 18+)] Stat Complete Blood Count AUTO DIFF Stat Comprehensive Metabolic Panel Stat Lipase Stat Magnesium Stat PTT Partial Thromboplastin Lucho Stat Prothrombin Time INR Stat Troponin & CK Cardiac Panel Stat 02/28/23 20:58 Trop I [Troponin I] Stat Discontinued Medications Apixaban (Apixaban 5 Mg Tablet) 5 mg PO NOW ONE Stop: 02/28/23 23:16 Last Admin: 02/28/23 23:21 Dose: 5 mg Documented By: ESTELA Aspirin (Aspirin 81 Mg Chew Tab) 324 mg PO NOW ONE Stop: 02/28/23 18:53 Last Admin: 02/28/23 19:19 Dose: 243 mg Documented By: RB Digoxin (Digoxin 500 Mcg/2 Ml Ampul) 250 mcg IV NOW ONE Stop: 02/28/23 19:20 Last Admin: 02/28/23 19:26 Dose: 250 mcg Documented By: RB Diltiazem HCl (Diltiazem 5 Mg/Ml Sdv) 10 mg IV NOW ONE Stop: 02/28/23 19:20 Last Admin: 02/28/23 19:29 Dose: 10 mg Documented By: RB Hydromorphone HCl (Hydromorphone 0.5 Mg Inj) 0.5 mg IV NOW ONE Stop: 02/28/23 19:49 Last Admin: 02/28/23 19:54 Dose: 0.5 mg Documented By: ESTELA Sodium Chloride (Normal Saline 0.9%) 500 mls @ 1,000 mls/hr IV BOLUS ONE Stop: 02/28/23 19:44 Last Infusion: 02/28/23 20:00 Dose: Infused Documented By: Admin: 02/28/23 19:19 Dose: 1,000 mls/hr Documented By: BEATRIZ Metoprolol Tartrate (Metoprolol Ir 25 Mg Tablet) 25 mg PO NOW ONE Stop: 02/28/23 23:16 Last Admin: 02/28/23 23:20 Dose: 25 mg Documented By: ESTELA Vital Signs Vital signs: Vital Signs - 8 hr 02/28/23 18:43 02/28/23 18:52 02/28/23 18:53 Temperature 98.4 F Pulse Rate 160 H 169 H Respiratory Rate 18 25 H Blood Pressure 143/78 H 143/64 H Pulse Oximetry 97 100 Oxygen Delivery Method Room Air 02/28/23 18:53 02/28/23 19:00 02/28/23 19:01 Temperature Pulse Rate 172 H 169 H Respiratory Rate 24 22 Blood Pressure 137/70 Pulse Oximetry 100 99 Oxygen Delivery Method 02/28/23 19:01 02/28/23 19:07 02/28/23 19:07 Temperature Pulse Rate 170 H 166 H Respiratory Rate 22 21 Blood Pressure 100/64 Pulse Oximetry 98 98 Oxygen Delivery Method 02/28/23 19:10 02/28/23 19:10 02/28/23 19:15 Temperature Pulse Rate 161 H 160 H Respiratory Rate 20 21 Blood Pressure 94/63 Pulse Oximetry 97 98 Oxygen Delivery Method 02/28/23 19:20 02/28/23 19:20 02/28/23 19:26 Temperature Pulse Rate 155 H 117 H Respiratory Rate 19 Blood Pressure 105/76 105/76 Pulse Oximetry 98 Oxygen Delivery Method 02/28/23 19:29 02/28/23 19:30 02/28/23 19:30 Temperature Pulse Rate 120 H 121 H Respiratory Rate 20 Blood Pressure 105/76 142/65 H Pulse Oximetry 99 Oxygen Delivery Method 02/28/23 19:34 02/28/23 19:34 02/28/23 19:35 Temperature Pulse Rate 92 H 90 Respiratory Rate 21 19 Blood Pressure 114/56 L Pulse Oximetry 99 98 Oxygen Delivery Method 02/28/23 19:35 02/28/23 19:40 02/28/23 19:40 Temperature Pulse Rate 89 Respiratory Rate 22 Blood Pressure 113/55 L 113/56 L Pulse Oximetry 98 Oxygen Delivery Method 02/28/23 19:45 02/28/23 19:45 02/28/23 19:50 Temperature Pulse Rate 90 91 H Respiratory Rate 21 21 Blood Pressure 116/57 L Pulse Oximetry 97 97 Oxygen Delivery Method 02/28/23 19:50 02/28/23 19:55 02/28/23 19:55 Temperature Pulse Rate 90 Respiratory Rate 20 Blood Pressure 111/57 L 120/58 L Pulse Oximetry 97 Oxygen Delivery Method 02/28/23 20:00 02/28/23 20:00 02/28/23 20:05 Temperature Pulse Rate 89 Respiratory Rate 16 Blood Pressure 117/62 103/57 L Pulse Oximetry 96 Oxygen Delivery Method 02/28/23 20:05 02/28/23 20:10 02/28/23 20:10 Temperature Pulse Rate 94 H 95 H Respiratory Rate 16 17 Blood Pressure 139/73 Pulse Oximetry 96 96 Oxygen Delivery Method 02/28/23 20:15 02/28/23 20:16 02/28/23 20:16 Temperature Pulse Rate 112 H 112 H Respiratory Rate 28 H 25 H Blood Pressure 178/72 H Pulse Oximetry 97 Oxygen Delivery Method 02/28/23 20:20 02/28/23 20:20 02/28/23 20:25 Temperature Pulse Rate 94 H Respiratory Rate 18 Blood Pressure 124/61 124/59 L Pulse Oximetry 96 Oxygen Delivery Method 02/28/23 20:25 02/28/23 20:30 02/28/23 20:30 Temperature Pulse Rate 93 H 88 Respiratory Rate 15 15 Blood Pressure 120/57 L Pulse Oximetry 96 96 Oxygen Delivery Method 02/28/23 20:35 02/28/23 20:35 02/28/23 20:40 Temperature Pulse Rate 93 H 92 H Respiratory Rate 15 20 Blood Pressure 114/60 Pulse Oximetry 96 96 Oxygen Delivery Method 02/28/23 20:40 02/28/23 20:45 02/28/23 20:45 Temperature Pulse Rate 95 H Respiratory Rate 18 Blood Pressure 119/64 134/70 Pulse Oximetry 96 Oxygen Delivery Method 02/28/23 20:50 02/28/23 20:50 02/28/23 20:55 Temperature Pulse Rate 87 Respiratory Rate 19 Blood Pressure 118/69 122/61 Pulse Oximetry 96 Oxygen Delivery Method 02/28/23 20:55 02/28/23 21:00 02/28/23 21:00 Temperature Pulse Rate 90 88 Respiratory Rate 16 16 Blood Pressure 110/60 Pulse Oximetry 96 95 Oxygen Delivery Method 02/28/23 21:05 02/28/23 21:05 02/28/23 21:10 Temperature Pulse Rate 93 H Respiratory Rate 16 Blood Pressure 119/56 L 99/60 Pulse Oximetry 95 Oxygen Delivery Method 02/28/23 21:10 02/28/23 21:15 02/28/23 21:15 Temperature Pulse Rate 95 H 92 H Respiratory Rate 15 18 Blood Pressure 115/66 Pulse Oximetry 96 96 Oxygen Delivery Method 02/28/23 21:20 02/28/23 21:20 02/28/23 21:25 Temperature Pulse Rate 95 H 93 H Respiratory Rate 19 16 Blood Pressure 113/60 Pulse Oximetry 95 96 Oxygen Delivery Method 02/28/23 21:25 02/28/23 21:30 02/28/23 21:30 Temperature Pulse Rate 98 H Respiratory Rate 20 Blood Pressure 111/55 L 111/61 Pulse Oximetry 95 Oxygen Delivery Method 02/28/23 21:35 02/28/23 21:35 02/28/23 21:40 Temperature Pulse Rate 98 H Respiratory Rate 15 Blood Pressure 121/59 L 115/56 L Pulse Oximetry 96 Oxygen Delivery Method 02/28/23 21:40 02/28/23 21:45 02/28/23 21:45 Temperature Pulse Rate 97 H 96 H Respiratory Rate 21 15 Blood Pressure 121/56 L Pulse Oximetry 96 95 Oxygen Delivery Method 02/28/23 21:50 02/28/23 21:50 02/28/23 21:55 Temperature Pulse Rate 98 H 99 H Respiratory Rate 16 16 Blood Pressure 114/56 L Pulse Oximetry 95 95 Oxygen Delivery Method 02/28/23 21:55 02/28/23 22:00 02/28/23 22:00 Temperature Pulse Rate 95 H Respiratory Rate 19 Blood Pressure 119/59 L 112/55 L Pulse Oximetry 95 Oxygen Delivery Method 02/28/23 22:05 02/28/23 22:05 02/28/23 22:10 Temperature Pulse Rate 95 H Respiratory Rate 16 Blood Pressure 107/68 116/58 L Pulse Oximetry 95 Oxygen Delivery Method 02/28/23 22:10 02/28/23 22:15 02/28/23 22:15 Temperature Pulse Rate 93 H 92 H Respiratory Rate 15 14 Blood Pressure 112/61 Pulse Oximetry 95 95 Oxygen Delivery Method 02/28/23 22:20 02/28/23 22:20 02/28/23 22:25 Temperature Pulse Rate 96 H Respiratory Rate 16 Blood Pressure 114/61 117/58 L Pulse Oximetry 96 Oxygen Delivery Method 02/28/23 22:25 02/28/23 22:30 02/28/23 22:30 Temperature Pulse Rate 93 H 89 Respiratory Rate 11 L 19 Blood Pressure 111/59 L Pulse Oximetry 95 96 Oxygen Delivery Method 02/28/23 22:35 02/28/23 22:35 02/28/23 22:40 Temperature Pulse Rate 90 Respiratory Rate 15 Blood Pressure 119/55 L 112/57 L Pulse Oximetry 95 Oxygen Delivery Method 02/28/23 22:40 02/28/23 22:45 02/28/23 22:45 Temperature Pulse Rate 92 H 90 Respiratory Rate 14 19 Blood Pressure 103/58 L Pulse Oximetry 95 97 Oxygen Delivery Method 02/28/23 22:50 02/28/23 22:50 02/28/23 22:55 Temperature Pulse Rate 87 Respiratory Rate 15 Blood Pressure 109/56 L 105/55 L Pulse Oximetry 97 Oxygen Delivery Method 02/28/23 22:55 Temperature Pulse Rate 90 Respiratory Rate 20 Blood Pressure Pulse Oximetry 97 Oxygen Delivery Method MDM - Chest Pain Lab Data 02/28/23 18:54 02/28/23 18:54 Labs: Lab Results 02/28/23 02/28/23 Range/Units 18:54 20:58 WBC 10.2 (4.5-11.0) X10^3/uL RBC 4.55 (4.5-5.9) X10^6/uL Hgb 13.4 L (13.5-17.5) g/dL Hct 39.9 L (41-53) % MCV 87.7 (80-100) fL MCH 29.4 (26-34) PG MCHC 33.6 (30-36) % RDW 13.8 (11.6-14.8) % Plt Count 233 (150-400) X10^3/uL Neut % (Auto) 72.7 (50-75) % Lymph % (Auto) 12.4 L (25-40) % Moca % (Auto) 11.8 (3-14) % Eos % (Auto) 2.2 (2-4) % Baso % (Auto) 0.9 (0-2) % Neut # (Auto) 7400 H (5028-5384) /uL Lymph # (Auto) 1300 (6011-8294) /uL Moca # (Auto) 1200 H (0-900) /uL Eos # (Auto) 200 (0-450) /uL Baso # (Auto) 100 (0-100) /uL PT 12.5 (9.4-12.5) SECONDS INR 1.1 (0.9-1.3) APTT 31 (25.1-36.5) SECONDS Sodium 137 (137-145) mmol/L Potassium 4.0 (3.4-5.1) mmol/L Chloride 99 (98-107) mmol/L Carbon Dioxide 29 (22-32) mmol/L BUN 16 (9-20) mg/dL Creatinine 0.88 (0.66-1.25) mg/dL Estimated GFR > 60 (>60) mL/min BUN/Creatinine Ratio 18.2 (6-22) Glucose 143 H (80-110) mg/dL Calcium 10.1 (8.4-10.2) mg/dL Magnesium 2.2 (1.6-2.3) mg/dL Total Bilirubin 0.8 (0.2-1.3) mg/dL AST 29 (17-59) IU/L ALT 18 (<50) IU/L Alkaline Phosphatase 82 (38-126) U/L Total Creatine Kinase 69 (55-170) U/L Troponin I < 0.012 0.015 (0.01-0.034) ng/mL NT-Pro-B Natriuret Pep 617 H (<450) pg/mL Total Protein 8.9 H (6.3-8.2) g/dL Albumin 4.7 (3.5-5.0) g/dL Globulin 4.2 H (1.7-4.1) g/dL Albumin/Globulin Ratio 1.1 (1.0-2.8) Lipase 548 H (23-300) U/L MDM Narrative Medical decision making narrative: CC: Chest pain Complicating co-morbidities: Paroxysmal atrial fibrillation currently not anticoagulated, carotid endarterectomy 2017 Data collected from: patient Medical records reviewed: Prior ER notes with atrial fibrillation from April of 2019 are reviewed. Patient reports that he had a syncopal episode in the seen at [facility] July of 2022. ER notes from this visit are reviewed. Subsequent to that he had a nuclear medicine stress test on [facility] through the [facility] was told that he had some moderate LAD disease and chose not to proceed with any stenting, was also told that he had biatrial enlargement. Differential considered: Acute coronary syndrome, AFib with rapid ventricular response, infection Exam documented above, pertinent findings include: Alert, appropriate, no sensation of his heart going fast. Complains of difficulty taking a deep breath because he feels like he can not fully expand his lungs. No lower extremity edema, no jugular venous distention. No cardiac murmurs. Lab Test results independently reviewed as above. Pertinent findings: CBC is unremarkable, no leukocytosis nor significant anemia Chemistries are reassuring with normal creatinine Lipase is minimally elevated at 548 (no abdominal pain on clinical exam) Initial troponin is undetectable, repeat troponin is 0.015 which remains in the normal range ProBNP is minimally elevated at 617 Independently reviewed EKG: Atrial fibrillation with rapid ventricular response at a rate of 154. No acute ischemic injuries are appreciated Imaging studies independently reviewed: No significant abnormalities, severe cardiomegaly, infiltrates or obvious effusions or failure Consultations:Cardiology. Dr Cardenas. She reviews [facility] and [facility] notes. Does look like he has paroxysmal afib. Was on eliquis at one point and would recommend restarting. At 1 point he would also been on Crestor and she recommend restarting this again. We discussed rate-controlling medications and chose to start with metoprolol tartrate 25 mg b.i.d. was given a dose in the emergency department. Because he very likely had a syncopal episode related to conversion pause will recommend hospitalization overnight make sure rate and blood pressure controlled begin anticoagulation and review from there. Treatments: With his atrial fibrillation with rapid ventricular response he is relatively asymptomatic. Given his history of biatrial enlargement an unknown length of time he has been in atrial fibrillation as well as the fact that he is had prior TIAs and carotid endarterectomy is I would prefer not to immediately cardioverted him. We will give him a small bolus of fluid and try diltiazem while remainder of workup is pending Re-evaluations: 745pm after the small fluid bolus and diltiazem and digoxin his heart rate is down to 88, still in atrial fibrillation. Still continues to complain of tightness with a deep breath. 845pm Brief episode of sinus at a rate of 76 then back to a fib in the 90s. .5 of dilaudid was helpful with the chest tightness Discussion: Discussed recommendations with patient. His chest pain has resolved at this point. He remains in AFib in the 85-100 range. Will add 25 mg of metoprolol and 5 mg of Eliquis this evening. Will discuss with the admitting tele hospitalist service, Dr Bui and he will be transferred to the floor for observation admission/telemetry. Discharge Plan Departure Patient Disposition: Admitted as Observation Clinical Impression: Atrial fibrillation with rapid ventricular response
[2023-02-28 19:06] LABS: INR 1.1 (0.9-1.3); Prothrombin Time 12.5 SECONDS (9.4-12.5)
[2023-02-28 19:09] LABS: Add Manual Diff / Slide Review NO; Basophils Absolute Auto 100 /uL (0-100); Basophils Percent Auto 0.9 % (0-2); Eosinophils Absolute Auto 200 /uL (0-450); Eosinophils Percent Auto 2.2 % (2-4); Hematocrit 39.9 % (41-53); Hemoglobin 13.4 g/dL (13.5-17.5); Lymphocytes Absolute Auto 1300 /uL (1100-4500); Lymphocytes Percent Auto 12.4 % (25-40); Mean Corpuscular HGB Conc 33.6 % (30-36); Mean Corpuscular Hemoglobin 29.4 PG (26-34); Mean Corpuscular Volume 87.7 fL (80-100); Monocytes Absolute Auto 1200 /uL (0-900); Monocytes Percent Auto 11.8 % (3-14); Neutrophils Absolute Auto 7400 /uL (1500-7000); Neutrophils Percent Auto 72.7 % (50-75); PTT Partial Thromboplastin Tim 31 SECONDS (25.1-36.5); Platelet Count 233 X10^3/uL (150-400); Red Blood Cell Count 4.55 X10^6/uL (4.5-5.9); Red Cell Distribution Width 13.8 % (11.6-14.8); White Blood Cell Count 10.2 X10^3/uL (4.5-11.0)
[2023-02-28 19:12] LABS: Alanine Aminotransferase 18 IU/L (<50); Albumin 4.7 g/dL (3.5-5.0); Albumin Globulin Ratio 1.1 (1.0-2.8); Alkaline Phosphatase 82 U/L (38-126); Aspartate Aminotransferase 29 IU/L (17-59); BUN Creatinine Ratio 18.2 (6-22); Bilirubin Total 0.8 mg/dL (0.2-1.3); Blood Urea Nitrogen 16 mg/dL (9-20); Calcium 10.1 mg/dL (8.4-10.2); Carbon Dioxide 29 mmol/L (22-32); Chloride 99 mmol/L (98-107); Creatine Kinase 69 U/L (55-170); Estimated Glomerular Filt Rate > 60 mL/min (>60); Globulin 4.2 g/dL (1.7-4.1); Glucose 143 mg/dL (80-110); HEMOLYSIS < 15 (0-50); Lipase 548 U/L (23-300); Magnesium 2.2 mg/dL (1.6-2.3); Sodium 137 mmol/L (137-145); Total Protein 8.9 g/dL (6.3-8.2)
[2023-02-28] MEDS: ASPIRIN 81 MG CHEW TAB 324 MG PO (19:19)
[2023-02-28] MEDS: SODIUM CHLORIDE 0.9% 500 ML 1000 ML IV (19:19)
--- NOTE | 2023-02-28 19:20 | PC.NURSE ---
Patient takes daily dose of 81mg asa. Provider ordered 324mg of asa. This RN asked if provider would like the patient to only take 243mg instead of the 324mg ordered. Provider stated that they only wanted 243mg instead.
[2023-02-28 19:23] LABS: Troponin I < 0.012 ng/mL (0.01-0.034)
[2023-02-28] MEDS: DIGOXIN 500 MCG/2 ML AMPUL 250 MCG IV (19:26)
[2023-02-28] MEDS: dilTIAZem 5 MG/ML SDV 10 MG IV (19:29)
[2023-02-28 19:41] LABS: NT-proBNP (BNP-Adult 18+) 617 pg/mL (<450)
--- NOTE | 2023-02-28 19:42 | PC.NURSE ---
Addendum entered by Luz Foster R.N. 02/28/23 19:50: This note was written by Celso Foster Original Note: meds given as ordered, rate decreased, pt continues to c/o chest pain with deep breathing
[2023-02-28] MEDS: HYDROMORPHONE 0.5 MG INJ IV (19:54)
[2023-02-28 21:36] LABS: Troponin I 0.015 ng/mL (0.01-0.034)
[2023-02-28] MEDS: METOPROLOL IR 25 MG TABLET PO (23:20)
[2023-02-28] MEDS: APIXABAN 5 MG TABLET PO (23:21)
[2023-03-01] VITALS: BP 109/58; PULSE 66; RESP 17; O2SAT 98
[2023-03-01 00:05] VITALS: BP 111/58; PULSE 64; RESP 16; O2SAT 97
[2023-03-01 00:15] VITALS: BP 119/59; PULSE 71; RESP 14; TEMP 36.8; O2SAT 97
[2023-03-01 00:45] VITALS: BMI 25.0
[2023-03-01 01:43] VITALS: BP 119/59; PULSE 69; RESP 12; TEMP 36.3; O2SAT 97
--- NOTE | 2023-03-01 02:44 | PM.HP.1 ---
History of Present Illness History of Present Illness Date Patient Seen: 02/28/23 Chief complaint: chest pain Narrative: 82 y/o with PMH of PAF, CAD, carotid stenosis (s/p stent), presented to ED after he woke up with upper chest pain, pain with deap breathing, and in ED found to be in rapid A-fib but not with ACS. He stopped taking BB and Eliquis some time ago as he did not find those really necessary. In the ED he initially slow down and converted with 1 x Cardizem and later he was in and out of A-fib but not tachyarrhythmic. Placed in observation for rate control and restarting anticoagulant. [facility] Medical History (Updated 03/01/23 @ 02:59 by Alfred Bui MD) HLD (hyperlipidemia) CAD (coronary artery disease) PAF (paroxysmal atrial fibrillation) Atrial fibrillation Hx-TIA (transient ischemic attack) Surgical History H/O carotid endarterectomy Social History marital status: household members: spouse lives independently: Yes Smoking Status: Never smoker Meds Home Medications and Allergies Home Medications Medication Instructions Recorded Confirmed Type Vitamin C 1 tab PO DAILY 05/03/19 05/03/19 History Vitamin D3 1 cap PO DAILY 05/03/19 05/03/19 History magnesium 1 tab PO DAILY 05/03/19 05/03/19 History multivitamin 1 tab PO DAILY 05/03/19 05/03/19 History resveratrol 1 cap PO DAILY 05/03/19 05/03/19 History vitamin K 1 tab PO DAILY 05/03/19 05/03/19 History Allergies Allergy/AdvReac Type Severity Reaction Status Date / Time No Known Drug Allergies Allergy Verified 07/28/22 11:53 Review of Systems Constitutional Comments: w/o fever, sweats or chills Cardiovascular Comments: see HPI Respiratory Comments: chest pain with deep breaths - resolved Gastrointestinal Comments: see HPI Genitourinary Comments: w/o dysuria Hematologic/Lymphatic Comments: w/o excessive bruising, blood in the stool or urine Exam Vital Signs (past 8 hours): - 02/28/23 18:52 02/28/23 18:53 02/28/23 18:53 Temperature Pulse Rate 169 H 172 H Respiratory Rate 25 H 24 Blood Pressure 143/64 H Pulse Oximetry 100 100 02/28/23 19:00 02/28/23 19:01 02/28/23 19:01 Temperature Pulse Rate 169 H 170 H Respiratory Rate 22 22 Blood Pressure 137/70 Pulse Oximetry 99 98 02/28/23 19:07 02/28/23 19:07 02/28/23 19:10 Temperature Pulse Rate 166 H 161 H Respiratory Rate 21 20 Blood Pressure 100/64 Pulse Oximetry 98 97 02/28/23 19:10 02/28/23 19:15 02/28/23 19:20 Temperature Pulse Rate 160 H Respiratory Rate 21 Blood Pressure 94/63 105/76 Pulse Oximetry 98 02/28/23 19:20 02/28/23 19:26 02/28/23 19:29 Temperature Pulse Rate 155 H 117 H 120 H Respiratory Rate 19 Blood Pressure 105/76 105/76 Pulse Oximetry 98 02/28/23 19:30 02/28/23 19:30 02/28/23 19:34 Temperature Pulse Rate 121 H 92 H Respiratory Rate 20 21 Blood Pressure 142/65 H Pulse Oximetry 99 99 02/28/23 19:34 02/28/23 19:35 02/28/23 19:35 Temperature Pulse Rate 90 Respiratory Rate 19 Blood Pressure 114/56 L 113/55 L Pulse Oximetry 98 02/28/23 19:40 02/28/23 19:40 02/28/23 19:45 Temperature Pulse Rate 89 Respiratory Rate 22 Blood Pressure 113/56 L 116/57 L Pulse Oximetry 98 02/28/23 19:45 02/28/23 19:50 02/28/23 19:50 Temperature Pulse Rate 90 91 H Respiratory Rate 21 21 Blood Pressure 111/57 L Pulse Oximetry 97 97 02/28/23 19:55 02/28/23 19:55 02/28/23 20:00 Temperature Pulse Rate 90 Respiratory Rate 20 Blood Pressure 120/58 L 117/62 Pulse Oximetry 97 02/28/23 20:00 02/28/23 20:05 02/28/23 20:05 Temperature Pulse Rate 89 94 H Respiratory Rate 16 16 Blood Pressure 103/57 L Pulse Oximetry 96 96 02/28/23 20:10 02/28/23 20:10 02/28/23 20:15 Temperature Pulse Rate 95 H 112 H Respiratory Rate 17 28 H Blood Pressure 139/73 Pulse Oximetry 96 02/28/23 20:16 02/28/23 20:16 02/28/23 20:20 Temperature Pulse Rate 112 H Respiratory Rate 25 H Blood Pressure 178/72 H 124/61 Pulse Oximetry 97 02/28/23 20:20 02/28/23 20:25 02/28/23 20:25 Temperature Pulse Rate 94 H 93 H Respiratory Rate 18 15 Blood Pressure 124/59 L Pulse Oximetry 96 96 02/28/23 20:30 02/28/23 20:30 02/28/23 20:35 Temperature Pulse Rate 88 Respiratory Rate 15 Blood Pressure 120/57 L 114/60 Pulse Oximetry 96 02/28/23 20:35 02/28/23 20:40 02/28/23 20:40 Temperature Pulse Rate 93 H 92 H Respiratory Rate 15 20 Blood Pressure 119/64 Pulse Oximetry 96 96 02/28/23 20:45 02/28/23 20:45 02/28/23 20:50 Temperature Pulse Rate 95 H 87 Respiratory Rate 18 19 Blood Pressure 134/70 Pulse Oximetry 96 96 02/28/23 20:50 02/28/23 20:55 02/28/23 20:55 Temperature Pulse Rate 90 Respiratory Rate 16 Blood Pressure 118/69 122/61 Pulse Oximetry 96 02/28/23 21:00 02/28/23 21:00 02/28/23 21:05 Temperature Pulse Rate 88 Respiratory Rate 16 Blood Pressure 110/60 119/56 L Pulse Oximetry 95 02/28/23 21:05 02/28/23 21:10 02/28/23 21:10 Temperature Pulse Rate 93 H 95 H Respiratory Rate 16 15 Blood Pressure 99/60 Pulse Oximetry 95 96 02/28/23 21:15 02/28/23 21:15 02/28/23 21:20 Temperature Pulse Rate 92 H Respiratory Rate 18 Blood Pressure 115/66 113/60 Pulse Oximetry 96 02/28/23 21:20 02/28/23 21:25 02/28/23 21:25 Temperature Pulse Rate 95 H 93 H Respiratory Rate 19 16 Blood Pressure 111/55 L Pulse Oximetry 95 96 02/28/23 21:30 02/28/23 21:30 02/28/23 21:35 Temperature Pulse Rate 98 H Respiratory Rate 20 Blood Pressure 111/61 121/59 L Pulse Oximetry 95 02/28/23 21:35 02/28/23 21:40 02/28/23 21:40 Temperature Pulse Rate 98 H 97 H Respiratory Rate 15 21 Blood Pressure 115/56 L Pulse Oximetry 96 96 02/28/23 21:45 02/28/23 21:45 02/28/23 21:50 Temperature Pulse Rate 96 H Respiratory Rate 15 Blood Pressure 121/56 L 114/56 L Pulse Oximetry 95 02/28/23 21:50 02/28/23 21:55 02/28/23 21:55 Temperature Pulse Rate 98 H 99 H Respiratory Rate 16 16 Blood Pressure 119/59 L Pulse Oximetry 95 95 02/28/23 22:00 02/28/23 22:00 02/28/23 22:05 Temperature Pulse Rate 95 H Respiratory Rate 19 Blood Pressure 112/55 L 107/68 Pulse Oximetry 95 02/28/23 22:05 02/28/23 22:10 02/28/23 22:10 Temperature Pulse Rate 95 H 93 H Respiratory Rate 16 15 Blood Pressure 116/58 L Pulse Oximetry 95 95 02/28/23 22:15 02/28/23 22:15 02/28/23 22:20 Temperature Pulse Rate 92 H Respiratory Rate 14 Blood Pressure 112/61 114/61 Pulse Oximetry 95 02/28/23 22:20 02/28/23 22:25 02/28/23 22:25 Temperature Pulse Rate 96 H 93 H Respiratory Rate 16 11 L Blood Pressure 117/58 L Pulse Oximetry 96 95 02/28/23 22:30 02/28/23 22:30 02/28/23 22:35 Temperature Pulse Rate 89 Respiratory Rate 19 Blood Pressure 111/59 L 119/55 L Pulse Oximetry 96 02/28/23 22:35 02/28/23 22:40 02/28/23 22:40 Temperature Pulse Rate 90 92 H Respiratory Rate 15 14 Blood Pressure 112/57 L Pulse Oximetry 95 95 02/28/23 22:45 02/28/23 22:45 02/28/23 22:50 Temperature Pulse Rate 90 87 Respiratory Rate 19 15 Blood Pressure 103/58 L Pulse Oximetry 97 97 02/28/23 22:50 02/28/23 22:55 12/23/23 22:55 Temperature Pulse Rate 90 Respiratory Rate 20 Blood Pressure 109/56 L 105/55 L Pulse Oximetry 97 03/01/23 00:15 Temperature 98.2 F Pulse Rate 71 Respiratory Rate 14 Blood Pressure 119/59 L Pulse Oximetry 97 Oxygen Delivery Method Room Air Const Other: sitting in bed in no distress HENMT Other: normocephalic Eyes Other: EOMI, reactive pupils Neck Other: w/o JVD Resp Other: CTA Cardio Other: irregularly irregular GI Other: not distended Skin Other: w/o rashes Neuro Other: w/o deficits Extrem Other: w/o swelling Psych Other: lucid, appropriate mood Objective Labs 02/28/23 18:54 02/28/23 18:54 Labs: Laboratory Results - last 24 hr 02/28/23 02/28/23 18:54 20:58 WBC 10.2 RBC 4.55 Hgb 13.4 L Hct 39.9 L MCV 87.7 MCH 29.4 MCHC 33.6 RDW 13.8 Plt Count 233 Neut % (Auto) 72.7 Lymph % (Auto) 12.4 L [place] % (Auto) 11.8 Eos % (Auto) 2.2 Baso % (Auto) 0.9 Neut # (Auto) 7400 H Lymph # (Auto) 1300 [place] # (Auto) 1200 H Eos # (Auto) 200 Baso # (Auto) 100 PT 12.5 INR 1.1 APTT 31 Sodium 137 Potassium 4.0 Chloride 99 Carbon Dioxide 29 BUN 16 Creatinine 0.88 Estimated GFR > 60 BUN/Creatinine Ratio 18.2 Glucose 143 H Calcium 10.1 Magnesium 2.2 Total Bilirubin 0.8 AST 29 ALT 18 Alkaline Phosphatase 82 Total Creatine Kinase 69 Troponin I < 0.012 0.015 NT-Pro-B Natriuret Pep 617 H Total Protein 8.9 H Albumin 4.7 Globulin 4.2 H Albumin/Globulin Ratio 1.1 Lipase 548 H Assessment & Plan Assessment and plan (1) PAF (paroxysmal atrial fibrillation): Status: Acute Plan: restarted Eliquelizabeth BB for rate control (2) CAD (coronary artery disease): Status: Acute Plan: w/o evidence of ACS, known LAD disease (3) Elevated lipase: Status: Acute Plan: Suspected acute pancreatitis, CT pending (4) HLD (hyperlipidemia): Status: Acute Plan: does not want to take statin Quality VTE Deep Vein Thrombosis/Pulmonary Embolism Present on Admission: No
[2023-03-01 04:34] VITALS: BP 120/58; PULSE 67; RESP 17; TEMP 37; O2SAT 96
[2023-03-01 07:20] LABS: Add Manual Diff / Slide Review NO; Basophils Absolute Auto 0 /uL (0-100); Basophils Percent Auto 0.7 % (0-2); Eosinophils Absolute Auto 300 /uL (0-450); Hematocrit 32.7 % (41-53); Hemoglobin 11.1 g/dL (13.5-17.5); Lymphocytes Absolute Auto 1300 /uL (1100-4500); Lymphocytes Percent Auto 20.1 % (25-40); Mean Corpuscular Hemoglobin 29.7 PG (26-34); Mean Corpuscular Volume 87.5 fL (80-100); Monocytes Absolute Auto 700 /uL (0-900); Monocytes Percent Auto 11.7 % (3-14); Neutrophils Absolute Auto 4000 /uL (1500-7000); Neutrophils Percent Auto 63.5 % (50-75); Platelet Count 179 X10^3/uL (150-400); Red Blood Cell Count 3.74 X10^6/uL (4.5-5.9); Red Cell Distribution Width 13.8 % (11.6-14.8); White Blood Cell Count 6.3 X10^3/uL (4.5-11.0)
[2023-03-01 07:35] LABS: Alanine Aminotransferase 14 IU/L (<50); Albumin 3.5 g/dL (3.5-5.0); Albumin Globulin Ratio 1.1 (1.0-2.8); Alkaline Phosphatase 59 U/L (38-126); Aspartate Aminotransferase 22 IU/L (17-59); BUN Creatinine Ratio 17.4 (6-22); Bilirubin Total 0.8 mg/dL (0.2-1.3); Blood Urea Nitrogen 15 mg/dL (9-20); Calcium 9.1 mg/dL (8.4-10.2); Carbon Dioxide 29 mmol/L (22-32); Chloride 105 mmol/L (98-107); Estimated Glomerular Filt Rate > 60 mL/min (>60); Globulin 3.1 g/dL (1.7-4.1); Glucose 109 mg/dL (80-110); HEMOLYSIS < 15 (0-50); Lipase 113 U/L (23-300); Potassium 3.9 mmol/L (3.4-5.1); Sodium 137 mmol/L (137-145); Total Protein 6.6 g/dL (6.3-8.2)
[2023-03-01 08:07] LABS: Troponin I 0.021 ng/mL (0.01-0.034)
--- NOTE | 2023-03-01 08:26 | CM.DANOTE ---
Addendum entered by ERIN Bingham 03/01/23 12:27: ADD: Per MD, pt's trops came back and pt safe for d/c home today with family and outpt f/u and no identified barriers to discharge. Per RN, no concerns noted at this time and d/c instructions will be provided and pt calling for family to transport home this afternoon. BF Original Note: Patient is an 82 yo male who was admitted OBS on 02/28/23 for Chest pain r/o. Pt has MCR and BX FED for insurance and his PCP is Dr. Kiley Jameson. EMR was reviewed. Per , pt with AFIB that has resolved and chest pain resolved and r/o pancreatitis and his lipase is normal range now and therefore CT scan cancelled. Per MD, pending labs this morning anticipate pt d/c home with outpt f/u today. SW met bedside with pt and explained role and he is very alert and oriented and confirms he lives in [place] with his (who he assumes is his DPOA and but does not know if they completed this pwk yet) and both are very active and independent at baseline. Pt drives and does not use DME for ambulation and denies any hx of HH or SNF. Pt states he and his moved here years ago to be close to family as pt's son and DIL and grandkids live here and they are very supportive and involved although grandkids are now in college in other states. Pt does not anticipate any needs and feels steady when on his feet in room and is hopeful to d/c home today via spouse POV. Plan: SW to follow closely for labs to confirm safe d/c home today via spouse POV and any further identified discharge planning needs. ERIN Bingham Discharge Planning/Care Management CM Discharge Assessment Start: 03/01/23 08:24 Freq: Status: Active Protocol: Document 03/01/23 08:24 BF (Rec: 03/01/23 08:26 BF [id number]) Discharge Planning Assessment Assigned Uptwist Spinner ERIN Bartlett DPOA/Assigned Designee Name spouse Jodi Contact Information [phone] Advance Directives? No Advance Directives on File No History Provided By Patient,Medical Record Has Patient been admitted in last 30 No days? Prior Living Arrangements House Household Members spouse Type of transporation used prior to Drives own vehicle admit Independent with ADL's Yes Is patient alert and oriented? Yes Caregiver for Another No Barriers to Discharge No Discharge Plan Home Transportation Arrangement states spouse can transport at d/c Referrals Initiated None needed Whiteboard Updated in Patient Room with Yes name and ext. # of Uptwist Spinner Review Status In Process Please Provide Date Initial DC 03/01/23 Assessment Was Performed Next Review Type Continued Stay Review
[2023-03-01 08:27] LABS: TSH w/ Reflex to FT4 2.18 uIU/mL (0.47-4.68)
[2023-03-01] MEDS: ASPIRIN EC 81 MG TABLET PO (09:10)
[2023-03-01] MEDS: ATORVASTATIN 20 MG TABLET 10 MG PO (09:10)
[2023-03-01] MEDS: APIXABAN 5 MG TABLET PO (09:10)
[2023-03-01] MEDS: ISOSORBIDE MONONITRATE ER 30 MG TABLET PO (09:10)
[2023-03-01 10:01] LABS: Hemoglobin A1C% w Est Avg Glu 5.5 % (4.0-6.0)
[2023-03-01 11:46] LABS: Troponin I 0.015 ng/mL (0.01-0.034)
[2023-03-01 12:00] VITALS: BP 122/60; PULSE 69; RESP 18; TEMP 36.8; O2SAT 96
--- NOTE | 2023-03-01 12:18 | P.DS_ITS ---
History of Present Illness History of Present Illness Chief complaint: chest pain Narrative: 82 y/o with PMH of PAF, CAD, carotid stenosis (s/p stent), presented to ED after he woke up with upper chest pain, pain with deep breathing, and in ED found to be in rapid A-fib but not with ACS. He stopped taking BB and Eliquis some time ago as he did not find those really necessary. In the ED he initially slow down and converted with 1 x Cardizem and later he was in and out of A-fib but not tachyarrhythmic. Placed in observation for rate control and restarting anticoagulant. Symptoms of chest pain lasted 24 hours until came in to ED. Additionally he states he had an acute syncopal episode 7 months ago, subsequently had extensive cardiology and neurology evaluation without definitive dx. He hasn't had any recurrent episodes. He also has stable exertional angina. he did stop his statin a couple of weeks ago due to myalgias but willing to restart. Discharge Providers Provider Date of admission: 02/28/23 23:52 Discharge Date: 03/01/23 Primary care physician: Kiley Jameson MD Discharge provider: Leonardo Jackson MD Summary Hospital Course Discharge Diagnosis: 1. Acute atrial fibrillation with RVR 2. History of CAD 3. Stable exertional angina Hospital Course: Pt was started on metoprolol and Eliquis and monitored overnight. He is in sinus rhythm this morning and denies chest pain. He ruled out for AMI. He is being discharged on metoprolol and Eliquis and agrees to go back on rosuvastatin. Status at Discharge Cognitive/behavioral status at discharge: oriented Functional status at discharge: independent ambulation Overall status at discharge: patient is back to baseline Time Spent with Patient Time spent: Greater than 30 minutes Exam Vital Signs (past 8 hours): - 03/01/23 04:34 03/01/23 12:00 Temperature 98.6 F 98.3 F Pulse Rate 67 69 Respiratory Rate 17 18 Blood Pressure 120/58 L 122/60 Pulse Oximetry 96 96 Oxygen Delivery Method Room Air Narrative Exam Narrative: Pt resting comfortably and is in no distress. Objective Labs 03/01/23 07:05 03/01/23 07:05 Labs: Laboratory Results - last 24 hr 02/28/23 02/28/23 03/01/23 18:54 20:58 07:02 WBC 10.2 RBC 4.55 Hgb 13.4 L Hct 39.9 L MCV 87.7 MCH 29.4 MCHC 33.6 RDW 13.8 Plt Count 233 Neut % (Auto) 72.7 Lymph % (Auto) 12.4 L [place] % (Auto) 11.8 Eos % (Auto) 2.2 Baso % (Auto) 0.9 Neut # (Auto) 7400 H Lymph # (Auto) 1300 [place] # (Auto) 1200 H Eos # (Auto) 200 Baso # (Auto) 100 PT 12.5 INR 1.1 APTT 31 Sodium 137 Potassium 4.0 Chloride 99 Carbon Dioxide 29 BUN 16 Creatinine 0.88 Estimated GFR > 60 BUN/Creatinine Ratio 18.2 Glucose 143 H Hemoglobin A1c Calcium 10.1 Magnesium 2.2 Total Bilirubin 0.8 AST 29 ALT 18 Alkaline Phosphatase 82 Total Creatine Kinase 69 Troponin I < 0.012 0.015 0.021 NT-Pro-B Natriuret Pep 617 H Total Protein 8.9 H Albumin 4.7 Globulin 4.2 H Albumin/Globulin Ratio 1.1 Lipase 548 H TSH 2.18 03/01/23 03/01/23 07:05 11:05 WBC 6.3 RBC 3.74 L Hgb 11.1 L Hct 32.7 L MCV 87.5 MCH 29.7 MCHC 34.0 RDW 13.8 Plt Count 179 Neut % (Auto) 63.5 Lymph % (Auto) 20.1 L [place] % (Auto) 11.7 Eos % (Auto) 4.0 Baso % (Auto) 0.7 Neut # (Auto) 4000 Lymph # (Auto) 1300 [place] # (Auto) 700 Eos # (Auto) 300 Baso # (Auto) 0 PT INR APTT Sodium 137 Potassium 3.9 Chloride 105 Carbon Dioxide 29 BUN 15 Creatinine 0.86 Estimated GFR > 60 BUN/Creatinine Ratio 17.4 Glucose 109 Hemoglobin A1c 5.5 Calcium 9.1 Magnesium Total Bilirubin 0.8 AST 22 ALT 14 Alkaline Phosphatase 59 Total Creatine Kinase Troponin I 0.015 NT-Pro-B Natriuret Pep Total Protein 6.6 Albumin 3.5 Globulin 3.1 Albumin/Globulin Ratio 1.1 Lipase 113 D TSH [facility] Medical History (Updated 03/01/23 @ 02:59 by Alfred Bui MD) HLD (hyperlipidemia) CAD (coronary artery disease) PAF (paroxysmal atrial fibrillation) Atrial fibrillation Hx-TIA (transient ischemic attack) Surgical History H/O carotid endarterectomy Social History marital status: household members: spouse lives independently: Yes Smoking Status: Never smoker Discharge Plan Discharge Plan Patient Disposition: Home Provider Discharge Comment: You were admitted due to diagnosis of afib with rapid ventricular rate. Please take the Eliquis and metoprolol as directed and follow up with Dr Kiley Jameson and your concrete floater. Monitor blood pressure and heart rate at home. Restart on your rosuvastatin. Consider addition of Zetia if your LDL is not at goal (usually at least less than 100, preferably less than 70). Other options include bempedoic acid with Zetia if you are statin intolerant. Your initial blood work showed elevated total protein to albumin ratio. As discussed, additional testing was sent for serum immuno-electrophoresis and light chain assay to rule out a myeloma or similar bone marrow condition. Actually the repeat total protein and albumin were normal so this is reassuring but follow up with Dr Jameson for results on the additional testing. Your lipase was elevated but repeat level was normal. I don't think this represents anything significant since you were not having abdominal symptoms. Your A1c was 5.5%, normal range. Your TSH was 2.18, normal range. Discharge orders & Medications Prescriptions: New aspirin 81 mg Tablet,Delayed Release (Dr/Ec) 81 mg PO DAILY Qty: 30 0RF Rx Instructions: OTC metoprolol tartrate 25 mg tablet 25 mg PO BID Qty: 60 0RF Eliquis 5 mg tablet 5 mg PO BID Qty: 60 0RF Continued multivitamin Tablet 1 tab PO DAILY Vitamin C 1 tab PO DAILY Vitamin D3 1 cap PO DAILY magnesium 1 tab PO DAILY resveratrol 1 cap PO DAILY vitamin K 1 tab PO DAILY amlodipine 2.5 mg tablet 2.5 mg PO DAILY isosorbide mononitrate 30 mg tablet extended release 24 hr 30 mg PO DAILY rosuvastatin 5 mg tablet 5 mg PO DAILY Follow up/Referrals: Kiley Jameson MD [Primary Care Provider] - Diet/Activity/Treatments Diet: Diet as Tolerated Visit Report/Discharge Packet Stand Alone Forms: Patient Portal/API, Stroke Signs & Symptoms Discharge Data Primary Care Provider: Kiley Jameson Attending Provider: Alfred Montelongo Admit Date/Time: 02/28/23 23:52 Quality VTE Deep Vein Thrombosis/Pulmonary Embolism Present on Admission: No
[2023-03-03 19:41] LABS: Free Kappa Lt Chains, Serum 26.4 mg/L (3.3-19.4); Free Lambda Lt Chains,Serum 12.9 mg/L (5.7-26.3)
[2023-03-04 10:09] LABS: Immunoglobulin A, Serum 60 mg/dL (61-437); Immunoglobulin G,Serum 861 mg/dL (603-1613); Immunoglobulin M, Serum 40 mg/dL (15-143)
== END 2023-03-01 12:46 | disposition home or self-care (01) ==
LOC: ED 23:15 → AC 23:53 → ICU 23:57
PROVIDERS: Internal Medicine; Admitting Provider Internal Medicine; Emergency Provider Emergency Medicine; PCP Internal Medicine; Referring Provider Emergency Medicine; Visit Provider Internal Medicine
DX: I48.0 Paroxysmal atrial fibrillation (principal); I25.10 Atherosclerotic heart disease of native coronary artery without angina pectoris; R74.8 Abnormal levels of other serum enzymes; E78.5 Hyperlipidemia, unspecified; Z86.73 Personal history of transient ischemic attack (TIA), and cerebral infarction without residual deficits
CPT/HCPCS: 36415; 71045; 80053; 82550; 82784; 83036; 83690; 83735; 83880; 83883; 84155; 84443; 84484; 85025; 85610; 85730; 86334; 93005; 93010; 96361; 96374; 96375; 99284; G0378; J1160; J1170